=== PATIENT | male | born 2000 | race Caucasian/White ===

== ENCOUNTER → 2020-02-27 12:48 | Outpatient (CLI) | payer BC, SELFPAY ==
--- NOTE | ~2020-02-27 | XR_ITS ---
EXAMINATION: XR chest 2V DATE: 02/27/2020 13:01 INDICATION: Pneumonia, unspecified organism. TECHNIQUE: Frontal and lateral views of the chest were obtained on 3 radiographs. COMPARISON: Chest 2 views 12/05/2004 FINDINGS: The chest demonstrates clear lungs without pneumonia, pleural effusion, or pneumothorax. Th e heart size is normal. IMPRESSION: 1. No acute cardiopulmonary disease. Reviewed, dictated and finalized at location A.
== END ==
PROVIDERS: PCP Physician Assistant; Visit Provider Physician Assistant
DX: J18.9 Pneumonia, unspecified organism (principal)
CPT/HCPCS: 71046

== ENCOUNTER 2020-11-13 07:07 | Outpatient (NON) | payer BC, SELFPAY ==
[2020-11-14 01:23] LABS: SARS-CoV-2 RNA PCR Negative
== END 2020-11-13 07:08 ==
LOC: ANHCOVIDDT 07:07
PROVIDERS: PCP Physician Assistant; Visit Provider Family Medicine
DX: R68.89 Other general symptoms and signs (principal); Z20.828 Contact with and (suspected) exposure to other viral communicable diseases
CPT/HCPCS: 87635; C9803; U0003

== ENCOUNTER 2021-08-01 04:57 | Observation (INO) | payer BC, SELFPAY ==
[2021-08-01] VITALS (19 sets, daily range): BP systolic 115–140; BP diastolic 56–76; PULSE 45–100; RESP 16–26; TEMP 32.2–36.7; O2SAT 99–100; BMI 22.6
--- NOTE | ~2021-08-01 | XR_ITS ---
EXAMINATION: XR chest 1V portable DATE: 08/01/2021 06:34 INDICATION: Altered mental status, sweating, weakness and hypothermia. TECHNIQUE: frontal view of the chest was obtained. COMPARISON: Chest radiograph dated 02/27/2020 FINDINGS: The lungs remain clear with no focal airspace opacities, pulmonary edema, pleural effusion or pneumot horax. Centimeters noted small azygos lobe and fissure at the medial right apex. The cardiomediastina l silhouette is normal. Visualized bones and soft tissues are unremarkable. IMPRESSION: 1. No acute cardiopulmonary disease. Reviewed, dictated and finalized at location A.
--- NOTE | 2021-08-01 05:25 | ED.GENADULT ---
HPI - General Adult General Chief complaint: Unspecified <Gatito Huang DO - Last Filed: 08/01/21 19:39> Stated complaint: Excessive sweating, muscles not working. <Gatito Huang DO - Last Filed: 08/01/21 19:39> Time Seen by Provider: 08/01/21 05:08 <Gatito Huang DO - Last Filed: 08/01/21 19:39> Source: RN notes reviewed <Gatito Huang DO - Last Filed: 08/01/21 19:39> History of Present Illness HPI narrative: Patient presents to emergency department from home for sweating and muscle fatigue. Patient states that he woke up from sleep at approximately 2 AM and went to the bathroom and had no difficulties he states that he went back to sleep and then woke up at 230 drenched in sweat he states that with this his muscles are not working . He states he feels shaky and achy all over he denies any fevers. He states that he did have nausea earlier but no nausea now he denies a headache, chest pain shortness of breath abdominal pain vomiting diarrhea or any other symptoms he states he felt fine all day yesterday <Gatito Huang DO - Last Filed: 08/01/21 19:39> Related Data Home medications: Home Medications Medication Instructions Recorded Confirmed topiramate 25 mg tablet 25 mg PO DAILY 01/16/20 08/01/21 <Gatito Huang DO - Last Filed: 08/01/21 19:39> Allergies/adverse reactions: Allergies Allergy/AdvReac Type Severity Reaction Status Date / Time promethazine Allergy Unknown hallucinati Verified 08/01/21 11:11 ons <Gatito Huang DO - Last Filed: 08/01/21 19:39> Review of Systems Review of Systems: Gen.: Denies fevers or chills or sweating ENT: Denies congestion Respiratory: Denies shortness of breath or cough CV: Denies chest pain or palpitations GI: Denies abdominal pain emesis or diarrhea reports nausea earlier denies burning, urgency, frequency or hematuria Musculoskeletal: Reports muscle aches Neuro: Denies numbness, tingling, weakness or focal weakness Skin: Denies rash Except as documented, all other systems reviewed and negative <Gatito Huang DO - Last Filed: 08/01/21 19:39> [facility] Past Medical History Medical History: Medical History (Updated 08/01/21 @ 14:15 by Saturnino Jacobs MD) Migraine Raynaud's disease <Gatito Huang DO - Last Filed: 08/01/21 19:39> Family History Family History: Family History Mother Family history of migraine headaches <Gatito Huang DO - Last Filed: 08/01/21 19:39> Social History Social History: Social History (Updated 08/01/21 @ 14:13 by Saturnino Jacobs MD) Social History: He lives at home with his mother and brother. 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 Denies tobacco use. She drinks 2 alcoholic drinks per week on average. He smokes a gram of marijuana per week. No history of IV drug use. Full code. Smoking status: Never smoker Alcohol intake: never Substance use: current Substance use type: marijuana Last use: 07/23/21 Spiritual care concerns: No <Gatito Huang DO - Last Filed: 08/01/21 19:39> Exam Narrative: APPEARANCE: Shivering in bed answering all questions EYES: EOMI, PERRL HEENT: Normocephalic, atraumatic, OMM RESPIRATORY: No respiratory distress Clear to auscultation bilaterally with no rhonchi wheezing or rales. CARDIOVASCULAR: Regular rate and rhythm without murmurs rubs or gallops. ABDOMINAL: Soft, nontender, nondistended, no rebound or guarding MUSCULOSKELETAl: Moves all extremities. No clubbing, distal cyanosis in several of the bilateral toes consistent with Raynaud's bilateral dorsalis pedis pulse 2+ neurovascular intact NEURO: Awake and alert x 4. Following commands, speech normal, no focal deficits SKIN:: Warm, dry. No rashes lesions or abrasions PSYCHIATRIC: Normal affect/mood, <Gatito Huang DO - Last Filed: 08/01/21 19:3
--- NOTE | 2021-08-01 05:40 | ECG_ITS ---
Measurements Intervals [place] Rate: 40 P: 77 [place]: 185 QRS: 81 QRSD: 134 T: 70 QT: 553 QTc: 451 Interpretive Statements SINUS BRADYCARDIA INTRAVENTRICULAR CONDUCTION DELAY ST ELEVATION IN ANTEROLAT/INF LEADS- PROBABLY EARLY REPOLARIZATION ABNORMALITY BASELINE ARTIFACT- I, II, III, AVR, AVL, V2, V4 ABNORMAL ECG Electronically Signed On 08-01-2021 7:24:09 CDT by Osvaldo Jimenez D.O.
[2021-08-01 05:49] LABS: Basophils Percent Auto 0.3 % (0.2-1.2); Eosinophils Percent Auto 0.2 % (0-4.4); Hematocrit 49.8 % (42.0-52.0); Hemoglobin 16.4 g/dL (14.0-18.0); Immature Granulocyte Percent A 1.4 % (0-0.5); Lymphocytes Absolute Auto 1.86 K/mm3 (0.9-3.2); Lymphocytes Percent Auto 12.8 % (18.3-44.2); Mean Corpuscular HGB Conc 32.9 g/dl (32-36); Mean Corpuscular Hemoglobin 32.1 pg (26-34); Mean Corpuscular Volume 97.5 fl (80-100); Monocytes Absolute Auto 0.7 K/mm3 (0.1-0.6); Monocytes Percent Auto 4.6 % (2.6-8.5); Neutrophils Absolute Auto 11.7 K/mm3 (1.3-6.7); Neutrophils Percent Auto 80.7 % (45.5-73.1); Platelet Count Result 191 k/mm3 (150-375); Red Blood Count 5.11 M/mm3 (4.6-6.20); Red Cell Distribution Width 12.5 % (11.5-14.5); White Blood Count 14.5 K/mm3 (4.5-10.0)
[2021-08-01 05:58] LABS: Lipase 24 U/L (23-300)
[2021-08-01] MEDS: SODIUM CHLORIDE 0.9% IV 1,000 ML 999 ML IV CONT (06:06)
--- NOTE | 2021-08-01 06:27 | PC.NURSE ---
late entry @0159 jessica calderon
[2021-08-01 06:53] LABS: Glucose Point of Care 100 mg/dl (65-105)
[2021-08-01 07:59] LABS: Ethanol < 10 mg/dL (<10); Lactic Acid Reflex 1.1 mmol/L (0.7-2.1)
--- NOTE | 2021-08-01 08:05 | PC.NURSE ---
Assumed care. Awake and alert. Color pink. Offers no c/o.
[2021-08-01 08:26] LABS: Alanine Aminotransferase 24 U/L (4-50); Albumin Level 4.5 g/dL (3.5-5.1); Alkaline Phosphatase 87 U/L (38-126); Anion Gap 9 mmol/L (8-16); Aspartate Amino Transferase 52 U/L (17-59); Bilirubin,Total 0.6 mg/dL (0.2-1.3); Blood Urea Nitrogen 20 mg/dL (9-20); Carbon Dioxide 24 mmol/L (22-30); Chloride 103 mmol/L (98-107); Creatine Kinase 516 U/L (55-170); Estimated CRCL calculation 127 ml/min; Estimated Glomerular Filt Rate > 60; Glucose 84 mg/dL (65-110); Magnesium 1.8 mg/dL (1.6-2.3); Potassium 4.2 mmol/L (3.4-5.0); Sodium 136 mmol/L (137-145)
[2021-08-01 08:29] LABS: Add Urine Microscopic? YES; Appearance Urine Clear (Clear); Bilirubin Urine Negative (Negative); Blood Urine Negative (Negative); Color Urine Yellow (Yellow); Glucose Urine UA Negative (Negative); Ketones Urine 2+ mg/dL (Negative); Leukocyte Esterase Ur Negative LEU/UL (Negative); Mucus Urine Rare /lpf; Nitrate Urine Negative (Negative); Protein Urine Negative (Negative); RBC Urine 0-2 /hpf (0-2); Specific Grav Ur 1.023 (1.001-1.035); Urobilinogen Urine Negative mg/dL (<2.0)
[2021-08-01 08:37] LABS: Amphetamine Screen Urine Negative (Negative); Barbiturate Screen Urine Negative (Negative); Benzodiazepines Screen Urine Negative (Negative); Cannabinoid Screen Urine Positive (Negative); Cocaine Screen Urine Negative (Negative); Methadone Screen Urine Negative (Negative); Opiate Screen Urine Negative (Negative); Phencyclidine Screen Urine Negative (Negative)
--- NOTE | 2021-08-01 11:15 | ADMGEN ---
This patient, Gino Rossi, was admitted to Medical Room 240-01. Patient/family oriented to hospital policies and general routines including ID bracelet, bed and alarms, visiting hours, pain management, procedures, bathroom and other care routines, personal items, smoking policy, room service/diet, and visiting hours. Information on how to activate the Rapid Response Team has been discussed. Patient/Family are encouraged to report perceived risks to care and to ask questions if they do not understand what they are told or what they should do.
[2021-08-01] MEDS: SODIUM CHLORIDE 0.9% IV 1,000 ML 125 ML IV CONT ×2 (12:37→19:36)
--- NOTE | 2021-08-01 13:58 | PM.IMHP ---
H&P: HPI History of Present Illness Date/Time: PATIENT HAS BEEN ADMITTED UNDER OBSERVATION STATUS 08/01/21 13:58 Chief Complaint: weakness Narrative: 20yo male with migraines here for weakness. Patient states he drank 4 alcoholic drinks yesterday. He denies using marijuana or other drug use. He fell asleep around 8:30 p.m. last evening. He fell asleep with his wet swim trunks on. He awoke around 230 a.m. this morning and was able to walk to the bathroom. He states there was no symptoms at that time. He returned to bed but could not sleep. Patient did not have a fan. He developed diaphoresis with nausea. He had trouble getting out of bed and felt very weak walking to the bathroom. He was having chills but no fevers. No cough or shortness of breath but did feel slightly dyspneic on walking up stairs. No chest pain or palpitations. No dysuria or hematuria. No diarrhea. No skin rashes. No headaches, sore throat or eye symptoms. No complaints of anosmia or dysgeusia. No COVID exposures. No exposure to STDs. He was vaccinated last spring. In the bathroom he laid down on the ground had difficulty even getting up. He states that his friend had to carry him to his car and he was brought to the emergency room for evaluation. In the emergency room, patient's temperature was 90? and heart rate was 45. EKG reviewed showing sinus bradycardia heart rate [address]-elevation probbaly repolarization. Again patient denies any chest pain. Alcohol level was negative. Urine drug screen is positive for cannabis. UA showed 2+ ketones. Comprehensive metabolic panel was normal. Total CK was 516. White count is elevated 14,000. Chest x-ray was clear. Patient was treated with a Jillian Hugger. Temperature improved. This was started on IV fluids after fluid bolus given. Heart rate has normalized. Patient feels well now. He was admitted for further care. Review of Systems Review of Systems: All systems reviewed & are unremarkable except as noted in HPI and below PMFSH Past Medical History Medical History (Updated 08/01/21 @ 14:15 by Saturnino Jacobs MD) Migraine Raynaud's disease Family History Family History Mother Family history of migraine headaches Social History Social History (Updated 08/01/21 @ 14:13 by Saturnino Jacobs MD) Social History: He lives at home with his mother and brother. 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 Denies tobacco use. She drinks 2 alcoholic drinks per week on average. He smokes a gram of marijuana per week. No history of IV drug use. Full code. Smoking status: Never smoker Alcohol intake: never Substance use: current Substance use type: marijuana Last use: 07/23/21 Spiritual care concerns: No Meds Home Medications and Allergies Home Medications Medication Instructions Recorded Confirmed Type topiramate 25 mg tablet 25 mg PO DAILY 01/16/20 08/01/21 History rizatriptan 10 mg tablet See Rx Instructions PO .COMPLEX 12/14/20 08/01/21 Rx #10 tablet Allergies Allergy/AdvReac Type Severity Reaction Status Date / Time promethazine Allergy Unknown hallucinati Verified 08/01/21 11:11 ons Vital Signs Vital Signs - 24 hr 08/01/21 05:30 08/01/21 05:45 08/01/21 06:18 Temperature 90 F L 91 F L Pulse Rate 45 L 100 79 Respiratory Rate 20 18 18 Blood Pressure 120/56 L 117/62 115/60 Pulse Oximetry 100 100 08/01/21 06:55 08/01/21 07:49 08/01/21 08:00 Temperature 93.5 F L Pulse Rate 66 73 66 Respiratory Rate 18 26 H 16 Blood Pressure 120/75 Pulse Oximetry 100 100 08/01/21 08:01 08/01/21 08:16 08/01/21 09:45 Temperature 96.5 F L 97.9 F Pulse Rate 55 L 68 Respiratory Rate 16 16 Blood Pressure 130/75 131/71 Pulse Oximetry 99 08/01/21 10:39 08/01/21 11:09 08/01/21 12:00 Temperature 97.8 F Pulse Rate 64 71 69 Respiratory Ra
[2021-08-01 16:21] LABS: Monoscreen Negative (Negative); Negative Monotest Control Negative (Negative); Positive Monotest Control Positive (Positive)
[2021-08-01] MEDS: MELATONIN 3 MG TABLET PO (21:51)
[2021-08-02] VITALS: PULSE 57
--- NOTE | 2021-08-02 | ECHO_ITS ---
Patient Info Name: Gino Rossi Age: 20 years : 2000 Gender: Male Ht: 74 in Wt: 176 lbs BSA: 2.04 m2 HR: 58 bpm BP: 131 / 67 mmHg Exam Date: 08/02/2021 11:37 AM Exam Location: [facility] Patient Status: Outpatient Admit Date: 08/01/2021 Staff Ordering Physician: Saturnino Jacobs MD Station Helper: Luiz Epstein RDCS, RT Attending Provider: Saturnino Jacobs MD Exam Type: CA echo doppler color flow Study Info Indications R00.1 - Bradycardia, unspecified Complete two-dimensional, color flow and Doppler transthoracic echocardiogram is performed. Strain analysis performed. Summary 1. Complete two-dimensional, color flow and Doppler transthoracic echocardiogram is performed. 2. Left ventricular chamber dimension is mildly enlarged. 3. Left ventricular systolic function is normal, estimated at 55-60%. 4. The left ventricular diastolic function is normal. 5. E/e' 4 is not elevated. 6. Global longitudinal strain is normal at -20.5%. Left Ventricle E/e' 4 is not elevated. Global longitudinal strain is normal at -20.5%. Left ventricular chamber dimension is mildly enlarged. Left ventricular systolic function is normal, estimated at 55-60%. The left ventricular diastolic function is normal. Right Ventricle Right ventricular systolic function is normal and with normal TAPSE 2.4 cm. Right ventricular chamber dimension is normal. Left Atria Left atrial chamber dimension is normal. Right Atria Right atrial chamber dimension is normal. Aortic Valve The aortic valve is trileaflet. There is no aortic valve stenosis. There is no aortic valve regurgitation. Pulmonic Valve There is no pulmonic regurgitation. Mitral Valve There is no mitral valve stenosis. There is no mitral valve regurgitation. Tricuspid Valve There is no tricuspid valve regurgitation. Pericardium/Pleural There is no pericardial effusion. Inferior Vena Cava Normal inferior vena cava with >50% collapse upon inspiration consistent with normal right atrial pressure, 5 mmHg. Aorta The aortic root size at the sinus of Valsalva is normal. Left Ventricular Outflow Tract Name Value Normal LVOT 2D LVOT Diameter 2.2 cm LVOT Doppler LVOT Peak Gradient 4 mmHg LVOT Mean Gradient 2 mmHg LVOT VTI 22 cm LVOT VTI/AV VTI Ratio 0.9 LVOT Stroke Volume 84 ml LVOT CO 4.7 l/min LVOT CI 2.3 l/min/m2 Mitral Valve Name Value Normal MV Doppler MV Decel [place] 290 cm/s2 MV PHT 67 ms MV Area (PHT) 3.3 cm2 MV Diastolic Function
[2021-08-02 04:00] VITALS: BP 122/73; PULSE 55; PULSE 64; RESP 16; TEMP 36.4; O2SAT 99
[2021-08-02 05:18] LABS: Basophils Percent Auto 0.3 % (0.2-1.2); Eosinophils Percent Auto 0.5 % (0-4.4); Hematocrit 43.3 % (42.0-52.0); Hemoglobin 14.7 g/dL (14.0-18.0); Immature Granulocyte Absolute 0.01 K/mm3 (0.00-0.031); Immature Granulocyte Percent A 0.2 % (0-0.5); Lymphocytes Absolute Auto 1.64 K/mm3 (0.9-3.2); Lymphocytes Percent Auto 25.9 % (18.3-44.2); Mean Corpuscular HGB Conc 33.9 g/dl (32-36); Mean Corpuscular Hemoglobin 32.5 pg (26-34); Mean Corpuscular Volume 95.6 fl (80-100); Mean Platelet Volume 10.9 fl (7.4-10.4); Monocytes Absolute Auto 0.7 K/mm3 (0.1-0.6); Monocytes Percent Auto 10.3 % (2.6-8.5); Neutrophils Percent Auto 62.8 % (45.5-73.1); Platelet Count Result 176 k/mm3 (150-375); Red Blood Count 4.53 M/mm3 (4.6-6.20); Red Cell Distribution Width 12.8 % (11.5-14.5); White Blood Count 6.3 K/mm3 (4.5-10.0)
[2021-08-02 05:40] LABS: Alanine Aminotransferase 19 U/L (4-50); Albumin Level 3.7 g/dL (3.5-5.1); Alkaline Phosphatase 64 U/L (38-126); Anion Gap 7 mmol/L (8-16); Aspartate Amino Transferase 34 U/L (17-59); Bilirubin,Total 0.7 mg/dL (0.2-1.3); Blood Urea Nitrogen 12 mg/dL (9-20); Calcium 8.9 mg/dL (8.4-10.2); Carbon Dioxide 21 mmol/L (22-30); Chloride 107 mmol/L (98-107); Creatine Kinase 242 U/L (55-170); Estimated CRCL calculation 130 ml/min; Estimated Glomerular Filt Rate > 60; Glucose 95 mg/dL (65-110); Potassium 3.6 mmol/L (3.4-5.0); Sodium 135 mmol/L (137-145)
[2021-08-02] MEDS: SODIUM CHLORIDE 0.9% IV 1,000 ML 125 ML IV CONT ×2 (05:52→13:46)
--- NOTE | 2021-08-02 07:00 | ECG_ITS ---
Measurements Intervals [place] Rate: 49 P: 75 [place]: 157 QRS: 74 QRSD: 112 T: 56 QT: 433 QTc: 394 Interpretive Statements SINUS BRADYCARDIA INCOMPLETE RIGHT BUNDLE BRANCH BLOCK ABNORMAL ECG Electronically Signed On 08-02-2021 9:07:13 CDT by Osvaldo Jimenez D.O.
[2021-08-02 08:00] VITALS: PULSE 53
[2021-08-02 10:00] VITALS: BP 138/82; PULSE 66; RESP 20; TEMP 36.6; O2SAT 100
[2021-08-02 12:30] VITALS: PULSE 78
--- NOTE | 2021-08-02 14:03 | PM.DS ---
DS: Admitting Diagnosis Discharge Date 08/02/21 Admitting Diagnosis weakness DS: Discharge Diagnosis Discharge Diagnosis (1) Hypothermia: Qualifiers: Encounter type: initial encounter Qualified Code(s): T68.XXXA - Hypothermia, initial encounter Code(s): T68.XXXA - Hypothermia, initial encounter Status: Acute Assessment and Plan: Patient with significant hypothermia on presentation. Although patient was sleeping with his wet bathing suit, he was under a comforter in a bed making exposure less likely. White count was elevated so we considered sepsis although symptoms had acute onset and have resolved just as quickly. Temperature responded to the Jillian Hugger. This was weaned off and he was able to maintain his temperature. BCx NGTD. (2) Bradycardia: Code(s): R00.1 - Bradycardia, unspecified Status: Acute Assessment and Plan: Patient with bradycardia most likely related to the hypothermia. EKG showing sinus bradycardia with IVCD and ST elevation in anterolateral leads probably early repolarization. No recent medication use for his migraines. No illicit drug use recently. He says he has not smoked marijuana for a few days now. He denies taking excessive medications in an attempted overdose; denies suicidal ideation. Bradycardia appears to have resolved with resolution of the hypothermia and thus most likely connected. No complaints of chest pain which makes pericarditis less likely. He was monitored on telemetry and he was bradycardic at times when sleeping but normal HR response when up walking. TSH normal. Repeat EKG showing sinus alice (49) with incomplete right bundle branch block. Echo was normal. (3) Rhabdomyolysis: Qualifiers: Rhabdomyolysis type: non-traumatic Qualified Code(s): M62.82 - Rhabdomyolysis Code(s): M62.82 - Rhabdomyolysis Status: Acute Assessment and Plan: Patient with mild rhabdomyolysis possibly related to the shaking chills from hypothermia. Also consider if patient was sleeping on a hard surface although he denies this. Viral etiology is possible though seems less likely. Monospot negative. He was treated with IV fluids. Repeat total CK close to normal. (4) Marijuana use: Code(s): F12.90 - Cannabis use, unspecified, uncomplicated Status: Acute Assessment and Plan: Encouraged patient to stop smoking marijuana especially if he wants to have a career in law enforcement. He voiced understanding of this. DS: Summary Hospital Course Reason for hospitalization: 20yo male with migraines here for weakness. Please see H&P for details Hospital Course: Please see above for details of hospital course. Status at Discharge Cognitive/behavioral status at discharge: Stable Time Spent with Patient Time attestation: Total time spent providing and/or coordinating discharge services: 32 minutes Time spent: Greater than 30 minutes Specific discharge activities: attempted to call mother twice but no response (with patient permission) Exam Narrative: Af 97.9 138/82 78 20 100% ra Gen - NARD Chest - CTA bilaterally, nml RR CV - bradycardic, regular Abd - soft, NT/ND, +BS Ext - no pedal edema Neuro - nonfocal Psych - normal mood and affect. Patient is pleasant and cooperative. Skin - warm and dry. No rashes noted. DS: Data Data Completed and Pending Labs on day of discharge: Labs from last 24 hours 08/02/21 08/02/21 08/02/21 04:44 04:44 04:44 WBC 6.3 RBC 4.53 L Hgb 14.7 Hct 43.3 MCV 95.6 MCH 32.5 MCHC 33.9 RDW 12.8 Plt Count 176 MPV 10.9 H Immature Gran % (Auto) 0.2 Neut % (Auto) 62.8 Lymph % (Auto) 25.9 Churchill % (Auto) 10.3 H Eos % (Auto) 0.5 Baso % (Auto) 0.3 Lymph # (Auto) 1.64 Churchill # (Auto) 0.7 H Eos # (Auto) 0.0 Baso # (Auto) 0.0 Abs Immat Gran (auto) 0.01 Absolute Neuts (auto) 4.0 Absolute Nuc
== END 2021-08-02 15:01 | disposition home or self-care (01) ==
LOC: ANHED 05:09 → ANH2MED 10:15
PROVIDERS: Admitting Provider Internal Medicine; Emergency Provider Emergency Medicine; PCP Physician Assistant; Visit Provider Internal Medicine
DX: T68.XXXA Hypothermia, initial encounter (principal); R00.1 Bradycardia, unspecified; M62.82 Rhabdomyolysis; R53.1 Weakness; I45.10 Unspecified right bundle-branch block; I73.00 Raynaud's syndrome without gangrene; F12.90 Cannabis use, unspecified, uncomplicated; Z79.899 Other long term (current) drug therapy
CPT/HCPCS: 36415; 71045; 80053; 80307; 81001; 82550; 82948; 83605; 83690; 83735; 84443; 85025; 86308; 87040; 93005; 93306; 96360; 96361; 99285; A9270; G0378; J7030

== ENCOUNTER 2021-10-21 11:21 | Outpatient (CLI) | payer BC, SELFPAY ==
[2021-10-21 11:34] LABS: Basophils Percent Auto 0.2 % (0.2-1.2); Hematocrit 43.6 % (42.0-52.0); Hemoglobin 14.7 g/dL (14.0-18.0); Immature Granulocyte Absolute 0.04 K/mm3 (0.00-0.031); Immature Granulocyte Percent A 0.4 % (0-0.5); Lymphocytes Absolute Auto 0.64 K/mm3 (0.9-3.2); Lymphocytes Percent Auto 7.1 % (18.3-44.2); Mean Corpuscular HGB Conc 33.7 g/dl (32-36); Mean Corpuscular Hemoglobin 32.7 pg (26-34); Mean Corpuscular Volume 97.1 fl (80-100); Mean Platelet Volume 10.6 fl (7.4-10.4); Monocytes Absolute Auto 0.6 K/mm3 (0.1-0.6); Monocytes Percent Auto 6.2 % (2.6-8.5); Neutrophils Absolute Auto 7.8 K/mm3 (1.3-6.7); Neutrophils Percent Auto 86.1 % (45.5-73.1); Platelet Count Result 170 k/mm3 (150-375); Red Blood Count 4.49 M/mm3 (4.6-6.20); Red Cell Distribution Width 13.5 % (11.5-14.5)
== END 2021-10-21 11:22 | disposition home or self-care (01) ==
LOC: ANHLAB 11:23
PROVIDERS: PCP Family Medicine; Visit Provider Physician Assistant
DX: D72.829 Elevated white blood cell count, unspecified (principal)
CPT/HCPCS: 36415; 85025

== ENCOUNTER 2024-07-06 08:39 | Emergency (ER) | payer OTHER, SELFPAY ==
--- NOTE | ~2024-07-06 | XR_ITS ---
EXAMINATION: XR ankle RT min 3V DATE: 07/06/2024 09:17 INDICATION: Right ankle pain. TECHNIQUE: 4 views of right ankle were obtained. COMPARISON: None. FINDINGS: Bone alignment is normal. No fracture. Joint spaces are normal. IMPRESSION: 1. No fracture. Reviewed, dictated and finalized at location E. IMPRESSION: 1. No fracture.
--- NOTE | ~2024-07-06 | XR_ITS ---
EXAMINATION: XR finger 1st LT min 2V DATE: 07/06/2024 09:17 INDICATION: Left thumb pain and swelling. TECHNIQUE: 3 views of left thumb were obtained. COMPARISON: None. FINDINGS: Bone alignment is normal. No fracture. Joint spaces are normal. IMPRESSION: 1. No fracture. Reviewed, dictated and finalized at location E. IMPRESSION: 1. No fracture.
--- NOTE | 2024-07-06 08:43 | ED.GENADULT ---
HPI - General Adult General Chief complaint: Extremity Injury, Upper Stated complaint: R FOOT/L HAND PAIN Time Seen by Provider: 07/06/24 08:55 Source: patient, RN notes reviewed and old records reviewed Mode of arrival: ambulatory Limitations: no limitations History of Present Illness HPI narrative: 23-year-old male presents to the [facility] with complaints of right foot and left hand pain. Denies any injury. Patient reports playing pickleball on Sunday. Started with right anterior ankle pain night, left thumb pain started Sunday night. No treatment prior to arrival Related Data Allergies Allergy/AdvReac Type Severity Reaction Status Date / Time promethazine Allergy Unknown hallucinati Verified 07/06/24 08:51 ons Review of Systems Review of Systems: All systems reviewed & are unremarkable except as noted in HPI and below Constitutional: Constitutional: Reports no additional constitutional complaints Eyes: Eyes: Reports no additional eye complaints ENT: Reports system reviewed and no additional complaints, except as documented Cardiovascular: Cardiovascular: Reports no additional cardiovascular complaints, Denies chest pain and Denies dyspnea Respiratory: Respiratory: Reports no additional respiratory complaints, Denies chest congestion, Denies cough and Denies dyspnea Gastrointestinal: Gastrointestinal: Reports no additional gastrointestinal complaints, Denies abdominal pain, Denies nausea and Denies vomiting Musculoskeletal: Musculoskeletal: Reports as per HPI Integumentary/Breasts: Skin/Breast: Reports system reviewed and no additional complaints, except as docu Neurologic: Reports system reviewed and no additional complaints, except as documented Psychiatric: Psychiatric: Reports no additional psychiatric complaints Allergic/Immunologic: Allergic/Immunologic: Reports no additional allergic/immunologic complaints PMFSH Past Medical History Medical History Migraine Raynaud's disease Surgical History Surgical History Status post orchiopexy (~10/19/21) bilateral Family History Family History Mother Family history of migraine headaches Social History Social History Social History: caffeine 2 soda's daily Smoking status: Never smoker Tobacco type: e-cigarettes/vaping Alcohol intake: current Drinks per week: 6 Alcohol use details: Beer Do You Feel Safe in your Home?: Yes Lack of Transportation: No Lack of Food: Never True Current Housing: I Have Housing Concerned About Future Housing: No Difficulty Paying Gas/Electric Bills: No Difficulty Paying for Meds: No Currently Unemployed: No Education: Bachelor's Degree Difficulty w/ Childcare or Family Care: No Living arrangements: with family Occupation/Education: occupation 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 There is no relevant family history pertinent to the patient complaint. Exam Const: General: cooperative, healthy appearing, comfortable, no acute distress, well developed, alert and well nourished Nutritional Appearance: well nourished Orientation/consciousness: patient oriented x3 Limitations: no limitations HENMT: Head: normal to inspection Ears: hearing grossly normal bilaterally and external ears normal Face/Nose/Sinus: Normal external nose present, Normal nares present, Normal nasal mucous membranes and turbinates present, williams
[2024-07-06 08:52] VITALS: BP 108/94; PULSE 87; RESP 16; TEMP 36.5; O2SAT 98
== END 2024-07-06 09:49 | disposition home or self-care (01) ==
PROVIDERS: Emergency Provider Nurse Practitioner; PCP Family Medicine
DX: M79.645 Pain in left finger(s) (principal); M25.572 Pain in left ankle and joints of left foot; M25.472 Effusion, left ankle; F17.290 Nicotine dependence, other tobacco product, uncomplicated; I73.00 Raynaud's syndrome without gangrene
CPT/HCPCS: 73140; 73610; 99214; G0463

== ENCOUNTER 2024-07-07 15:30 | Emergency (ER) | payer OTHER, SELFPAY ==
[2024-07-07 16:12] VITALS: BP 135/94; PULSE 107; RESP 18; TEMP 36.6; O2SAT 99
--- NOTE | 2024-07-07 17:55 | ED.LOWEXIN ---
HPI - Extremity Injury (Lower) General Chief Complaint: Extremity Injury, Lower Stated Complaint: Right ankle and foot pain Time Seen by Provider: 07/07/24 17:15 Source: patient Mode of arrival: ambulatory (Using crutches) Limitations: no limitations History of Present Illness HPI Narrative: This is a 23-year-old male that presents to the emergency department for right ankle pain and swelling. Ongoing over the last 3 days. He was evaluated at urgent care for this. Had x-rays that were negative. Presents today for associated redness of the area. He has been alternating Tylenol and ibuprofen for pain. No known injuries. Denies fevers. Related Data Allergies Allergy/AdvReac Type Severity Reaction Status Date / Time promethazine Allergy Unknown hallucinati Verified 07/06/24 08:51 ons Review of Systems Review of Systems: CONSTITUTIONAL: Denies fever MUSCULOSKELETAL: Reports joint pain, and myalgia. NEUROLOGIC: Denies numbness All systems reviewed & are unremarkable except as noted in HPI and below PMFSH Past Medical History Medical History Migraine Raynaud's disease Surgical History Surgical History Status post orchiopexy (~10/19/21) bilateral Family History Family History Mother Family history of migraine headaches Social History Social History Social History: caffeine 2 soda's daily Smoking status: Never smoker Tobacco type: e-cigarettes/vaping Alcohol intake: current Drinks per week: 6 Alcohol use details: Beer Do You Feel Safe in your Home?: Yes Lack of Transportation: No Lack of Food: Never True Current Housing: I Have Housing Concerned About Future Housing: No Difficulty Paying Gas/Electric Bills: No Difficulty Paying for Meds: No Currently Unemployed: No Education: Bachelor's Degree Difficulty w/ Childcare or Family Care: No Living arrangements: with family Occupation/Education: occupation Additional occupation/education comments: [employer] Gender identity (if verbalized by the patient): Male Sexual Orientation (if Verbalized by the Patient): Straight or Heterosexual Spiritual care concerns: No Agree to blood products: Yes Exam Narrative: GENERAL: Well-appearing, well-nourished, and in no acute distress. HEAD: Normocephalic, atraumatic. EYES: EOMI. EXTREMITIES: Normal range of motion. Mild edema with overlying redness to the right foot dorsal surface anterior to the ankle. Normal DP pulse. Normal sensation SKIN: Warm, dry, no rash. NEURO: No focal deficits. Alert and oriented x3. PSYCH: Normal mood and affect Course Course Emergency Course: Patient updated on workup and agrees with plan of care Vital Signs Vital signs: Vital Signs Temperature 97.8 F 07/07/24 16:12 Pulse Rate 107 H 07/07/24 16:12 Respiratory Rate 18 07/07/24 16:12 Blood Pressure 135/94 H 07/07/24 16:12 Pulse Oximetry 99 07/07/24 16:12 Oxygen Delivery Room Air 07/07/24 16:12 Temperature 97.8 F 07/07/24 16:12 Pulse Rate 107 H 07/07/24 16:12 Respiratory Rate 18 07/07/24 16:12 Blood Pressure 135/94 H 07/07/24 16:12 Pulse Oximetry 99 07/07/24 16:12 Oxygen Delivery Room Air 07/07/24 16:12 MDM - Extremity Injury (Lower) MDM Narrative Medical decision making narrative: Patient presents to the emergency department for right ankle pain and swelling. Today noting associated redness. Is afebrile and nontoxic appearing. Patient is neurovascularly intact. Good range of motion in the ankle. CBC with mild leukocytosis to 10.4. Metabolic panel without concerning findings. CRP is 8.2. Uric acid is not elevated. Patient had ankle x-ray yesterday that was without acute findings. Concern for cellulitis
[2024-07-07] MEDS: ACETAMINOPHEN 500 MG TABLET 1000 MG PO (18:03)
[2024-07-07] MEDS: INDOMETHACIN 25 MG CAPSULE 50 MG PO (18:09)
[2024-07-07 18:20] LABS: Basophils Percent Auto 0.2 % (0.2-1.2); Eosinophils Percent Auto 0.4 % (0-4.4); Hematocrit 46.8 % (42.0-52.0); Hemoglobin 16.3 g/dL (14.0-18.0); Immature Granulocyte Absolute 0.04 K/mm3 (0.00-0.031); Immature Granulocyte Percent A 0.4 % (0-0.5); Lymphocytes Absolute Auto 1.38 K/mm3 (0.9-3.2); Lymphocytes Percent Auto 13.3 % (18.3-44.2); Mean Corpuscular HGB Conc 34.8 g/dl (32-36); Mean Corpuscular Volume 94.7 fl (80-100); Mean Platelet Volume 10.8 fl (7.4-10.4); Monocytes Absolute Auto 1.2 K/mm3 (0.1-0.6); Monocytes Percent Auto 11.5 % (2.6-8.5); Neutrophils Absolute Auto 7.7 K/mm3 (1.3-6.7); Neutrophils Percent Auto 74.2 % (45.5-73.1); Platelet Count Result 228 k/mm3 (150-375); Red Blood Count 4.94 M/mm3 (4.6-6.20); Red Cell Distribution Width 12.8 % (11.5-14.5); White Blood Count 10.4 K/mm3 (4.5-10.0)
[2024-07-07 18:35] LABS: Anion Gap 12 mmol/L (4-12); Blood Urea Nitrogen 13 mg/dL (9-20); CRP 8.2 mg/dL (<1.0); Calcium 9.7 mg/dL (8.4-10.2); Carbon Dioxide 29 mmol/L (22-30); Chloride 94 mmol/L (98-107); Estimated CRCL calculation 118 ml/min; Estimated Glomerular Filt Rate > 60; Glucose 103 mg/dL (65-110); Potassium 4.2 mmol/L (3.4-5.0); Sodium 135 mmol/L (137-145); Uric Acid 5.9 mg/dL (3.5-8.5)
[2024-07-07 19:10] LABS: Erythrocyte Sedimentation Rate 15 mm/hr (0-20)
== END 2024-07-07 19:18 | disposition home or self-care (01) ==
PROVIDERS: Emergency Provider Physician Assistant; PCP Family Medicine
DX: M25.571 Pain in right ankle and joints of right foot (principal)
CPT/HCPCS: 36415; 80048; 84550; 85025; 85652; 86140; 99283; A9270

== ENCOUNTER 2025-10-20 09:41 | Outpatient (CLI) | payer OTHER, SELFPAY ==
--- OUTSIDE RECORDS SUMMARY | 2025-07-23 10:00 | XMS_ITS ---
Author Organization [facility] [employer] [facility] Address [facility] [facility] [address] [place] [address] Care Team Providers Care Colliery Clerk Name Role Phone Toby Higgins DO Primary Care Provider Leobardo Hernandez Unavailable [phone] Tino Cook Unavailable [phone] REASON FOR VISIT Therapy Visit Social History Sex Assigned At : Social History Observation Description Sex Assigned At Male Encounters Encounter Location Date Provider Diagnosis [address] [facility] [address] [place] [address] 07/23/2025 Tino Cook Plan Of Treatment No Information Progress Notes * Gino ORTEGA RDOB:2000 (25 yo M)Acc No.[id number]:07/23/2025 Patient: Diana arizaGino Provider: Libia Cook LCPC :2000 A ge:24 Y S ex:Male Date:07/23/2025 Phone: Address:[address] [place], [place] [id number] Pcp:Toby Higgins DO Data: * Chief Complaints: * T herapy Visit * Electronic signature of John Cook LCPC on 10/20/2025 at 10:35 AM WEIGH AND CHARGE WORKER Sign off status: Pending Signatures: No Ad Hoc Signature Added * Provider: Libia Cook LCPC Date: 0 07/23/2025 Generated for Charles freed/Yashira/eTransmitting on: 1 12/20/2024 10:35 AM WEIGH AND CHARGE WORKER
--- OUTSIDE RECORDS SUMMARY | 2025-08-05 09:30 | XMS_ITS ---
Author Organization [facility] Address [facility] [address] [facility] [address] [place] [address] Care Team Providers Care Voip Technician Name Role Phone Toby Higgins DO Primary Care Provider Leobardo Hernandez [phone] REASON FOR VISIT 2 Month f/u Social History Sex Assigned At : Social History Observation Description Sex Assigned At Male Encounters Encounter Location Date Provider Diagnosis [facility] [address] [place] [address] [address] [address] 08/05/2025 Leobardo Alfaro Plan Of Treatment No Information Progress Notes * Gino ORTEGA RDOB:2000 (25 yo M)Acc No.[id number]:08/05/2025 Patient: Diana ariza Gino Smith Provider: Sunny ALFARO MD :2000 A ge:24 Y S ex:Male Date:08/05/2025 Phone: Address:[address] [place], [place] [id number] Pcp:Toby Higgins DO Subjective: * Chief Complaints: * 2 Month f/u * Active Problem List F33.1 Depression, major, r ecurrent, moderate Modified On:12/24/2024/U Status:confirmed F10.10 Alcohol abuse Modified On:12/24/2024/U Status:confirmed F90.2 ADHD (attention defi cit hyperactivity disorder), combined type Modified On:12/24/2024/U Status:confirmed E55.9 Vitamin D deficiency Modified On:01/14/2025/U Status:confirmed F41.1 Generalized anxiety disorder Modified On:01/29/2025/U Status:confirmed Billing Information: * Procedure Codes: * Electronic signature of Jayro Alfaro MD on 10/20/2025 at 10:35 AM ELECTRONIC WARFARE OPERATOR Sign off status: Pending * Provider: Sunny ALFARO MD Date: 0 08/05/2025 Generated for Charles freed/Yashira/Michelle on: 12/20/2024 10:35 AM ELECTRONIC WARFARE OPERATOR
--- OUTSIDE RECORDS SUMMARY | 2025-10-20 10:35 | XMS_ITS | Patient Health Record ---
Author Organization [facility] CANDDi Address [address] [facility] [address] [place] [address] Care Team Providers Care Book Agent Name Role Phone EzekielToby smith DO Primary Care Provider Leobardo Hernandez Unavailable [phone] Tino Cook Unavailable [phone] CookieBrinda mortensen Unavailable [phone] Allergies Allergen (clinical drug ingredient) Drug/Non Drug Allergy documented on EMR Reaction Allergy Type Onset Date Status promethazine Promethazine Unknown Drug Allergy A ctive Results Component Value Reference Range Flag Notes LIPID PANEL, STANDARD (7600) Reviewed date:12/30/2024 07:59:52 PM Interpretation:Abnormal (follow-up needed) Performing Lab:[facility] HospitalBehmx34730 Administration Sarah Richards [id number] [facility] Notes/Report: NON-FASTING; NON-FASTING; NON-FASTING; NON-FASTING; NON-FAST CHOLESTEROL, TOTAL 219 <200 mg/dL H HDL CHOLESTEROL 70 > OR = 40 mg/dL N TRIGLYCERIDES 387 <150 mg/dL H If a non-fasting specimen was collected, consider repeat triglyceride testing on a fasting specimen if clinically indicated. Watson et al. J. of Clin. Lipidol. 2015;9:129-169. LDL-CHOLESTEROL 97 N Reference range: <100 Desirable range <100 mg/dL for primary prevention; <70 mg/dL for patients with CHD or diabetic patients with > or = 2 CHD risk factors. LDL-C is now calculated using the Juventino calculation, which is a validated novel method providing better accuracy than the Friedewald equation in the estimation of LDL-C. Isreal SS et al. CRISTOBAL. 2013;310(19): 1702-7780 (http://education.Think1stBoxing.com/faq /VIH938) CHOL/HDLC RATIO 3.1 <5.0 (calc) N NON HDL CHOLESTEROL 149 <130 mg/dL (calc) H For patients with diabetes plus 1 major ASCVD risk factor, treating to a non-HDL-C goal of <100 mg/dL (LDL-C of <70 mg/dL) is considered a therapeutic option. THYROID PANEL WITH TSH (7444 ) Reviewed date:12/30/2024 07:59:53 PM Interpretation:Normal Performing Lab:[place], [facility]Hnivzd82686 [facility], [id number] Roberth Hardwick MD Notes/Report: NON-FASTING; NON-FASTING; NON-FASTING; NON-FASTING; NON-FAST T3 UPTAKE 31 22-35 % N T4 (THYROXINE), TOTAL 6.2 4.9-10.5 mcg/dL N FREE T4 INDEX (T7) 1.9 1.4-3.8 N TSH 3.16 0.40-4.50 mIU/L N COMPREHENSIVE METABOLIC PANE L (11558) Reviewed date:12/30/2024 07:59:52 PM Interpretation:Normal Performing Lab:[facility] CenterOhhla[address] [place] [id number] Roberth Hardwick Notes/Report: NON-FASTING; NON-FASTING; NON-FASTING; NON-FASTING; NON-FAST GLUCOSE 83 65-99 mg/dL N Fasting reference interval UREA NITROGEN (BUN) 10 7-25 mg/dL N CREATININE 1.03 0.60-1.24 mg/dL N EGFR 104 > OR = 60 mL/min/1.73m2 N BUN/CREATININE RATIO SEE NOTE: 6-22 (calc) Not Reported: BUN and Creatinine are within reference range. SODIUM 138 135-146 mmol/L N POTASSIUM 4.4 3.5-5.3 mmol/L N CHLORIDE 103 98-110 mmol/L N CARBON DIOXIDE 26 20-32 mmol/L N CALCIUM 10.0 8.6-10.3 mg/dL N PROTEIN, TOTAL 7.2 6.1-8.1 g/dL N ALBUMIN 4.8 3.6-5.1 g/dL N GLOBULIN 2.4 1.9-3.7 g/dL (calc) N ALBUMIN/GLOBULIN RATIO 2.0 1.0-2.5 (calc) N BILIRUBIN, TOTAL 0.4 0.2-1.2 mg/dL N ALKALINE PHOSPHATASE 58 36-130 U/L N AST 24 10-40 U/L N ALT 23 9-46 U/L N CBC (INCLUDES DIFF/PLT) (639 9) Reviewed date:12/30/2024 07:59:52 PM Interpretation:Abnormal (no f/u needed) Performing Lab:[place] [facility]star[facility] [place] [address] [address] Sarah Richards CteuydmKP[address] [facility] Notes/Report: NON-FASTING; NON-FASTING; NON-FASTING; NON-FASTING; NON-FAST WHITE BLOOD CELL COUNT 4.8 3.8-10.8 Thousand/uL N RED BLOOD CELL COUNT 4.47 4.20-5.80 Million/uL N HEMOGLOBIN 14.9 13.2-17.1 g/dL N HEMATOCRIT 44.2 38.5-50.0 % N MCV 98.9 80.0-100.0 fL N MCH 33.3 27.0-33.0 pg H MCHC 33.7 32.0-36.0 g/dL N For adults, a slight decrease in the calculated MCHC value (in the range of 30 to 32 g/dL) is most likely not clinically significant; however, it should be interpreted with caution in correlation with other red cell parameters and the patient's clinical condition. RDW 12.5 11.0-15.0 % N PLATELET COUNT 278 140-400 Thousand/uL N MPV 11.3 7.5-12.5 fL N ABSOLUTE NEUTROPHILS 2981 3311-2489 cells/uL N ABSOLUTE LYMPHOCYTES 6432 428-4001 cells/uL N ABSOLUTE MONOCYTES 475 200-950 cells/uL N ABSOLUTE EOSINOPHILS 53 15-500 cells/uL N ABSOLUTE BASOPHILS 29 0-200 cells/uL N NEUTROPHILS 62.1 N LYMPHOCYTES 26.3 N MONOCYTES 9.9 N EOSINOPHILS 1.1 N BASOPHILS 0.6 N HEMOGLOBIN A1c (496) Reviewed date:12/30/2024 07:59:52 PM Interpretation:Normal Performing Lab:[place] [facility] [place] [address] [address] Saarh Richards NolmhnsHF[address] [facility] Notes/Report: NON-FASTING; NON-FASTING; NON-FASTING; NON-FASTING; NON-FAST HEMOGLOBIN A1c 5.1 <5.7 % of total Hgb N For the purpose of screening for the presence of diabetes: <5.7% Consistent with the absence of diabetes 5.7-6.4% Consistent with increased risk for diabetes (prediabetes) > or =6.5% Consistent with diabetes This assay result is consistent with a decreased risk of diabetes. Currently, no consensus exists regarding use of hemoglobin A1c for diagnosis of diabetes in children. According to [place] Diabetes Association (ADA) guidelines, hemoglobin A1c <7.0% represents optimal control in non- diabetic patients. Different metrics may apply to specific patient populations. Standards of Medical Care in Diabetes(ADA). VITAMIN B12/FOLATE, SERUM PA AURELIA (9752) Reviewed date:12/30/2024 07:59:53 PM Interpretation:Abnormal (follow-up needed) Performing Lab:[place] [facility]ia-Qtrqzw41663 [place], [id number] Roberth Hardwick MD Notes/Report: NON-FASTING; NON-FASTING; NON-FASTING; NON-FASTING; NON-FAST VITAMIN B12 556 314-7622 pg/mL N Please Note: Although the reference range for vitamin B12 is 200-1100 pg/mL, it has been reported that between 5 and 10% of patients with values between 200 and 400 pg/mL may experience neuropsychiatric and hematologic abnormalities due to occult B12 deficiency; less than 1% of patients with values above 400 pg/mL will have symptoms. FOLATE, SERUM 4.8 L Reference Range Low: <3.4 Borderline: 3.4-5.4 Normal: >5.4 VITAMIN D,25-OH,TOTAL,IA (17 306) Reviewed date:12/30/2024 07:59:53 PM Interpretation:Abnormal (follow-up needed) Performing Lab:[place] [facility] Denia-Trrutf74734 [place], IyqsfpOQ[address] Roberth Hardwick MD Notes/Report: NON-FASTING; NON-FASTING; NON-FASTING; NON-FASTING; NON-FAST VITAMIN D,25-OH,TOTAL,IA 14 30-100 ng/mL L Vitamin D Status 25-OH Vitamin D: Deficiency: <20 ng/mL Insufficiency: 20 - 29 ng/mL Optimal: > or = 30 ng/mL For 25-OH Vitamin D testing on patients on D2-supplementation and patients for whom quantitation of D2 and D3 fractions is required, the QuestAssureD(TM) 25-OH VIT D, (D2,D3), LC/MS/MS is recommended: order code 45669 (patients >2yrs). See Note 1 Note 1 For additional information, please refer to http://education.Anaplan/faq/ IRD867 (This link is being provided for informational/ educational purposes only.) UDT Reviewed date:12/24/2024 04:18:14 PM Interpretation: Performing Lab: Notes/Report: Amphetamine (AMP) N 0 - 1000 ng/ml Buprenorphine (BUP) N 0 - 10 ng/ml Oxazepam (BZO) N 0 - 300 ng/ml Cocaine (DEVI) N 0 - 300 ng/ml Methamphetamine (mAMP) N 0 - 300 ng/ml Methylenedioxymethamphetamin e (MDMA) N 0 - 500 ng/ml Morphine (MOP) N 0 - 25 ng/ml Methadone (MTD) N 0 - 300 ng/ml Oxycodone (OXY) N 0 - 300 ng/ml THC P 0 - 50 ng/ml x N 0 - 1000 ng/ml x N 0 - 1000 ng/ml x N 0 - 300 ng/ml x N 0 - 300 ng/ml x N 0 - 300 ng/ml UDT Reviewed date:01/07/2025 05:19:35 PM Interpretation: Performing Lab: Notes/Report: Amphetamine (AMP) NEG 0 - 1000 ng/ml Buprenorphine (BUP) NEG 0 - 10 ng/ml Oxazepam (BZO) NEG 0 - 300 ng/ml Cocaine (DEVI) NEG 0 - 300 ng/ml Methamphetamine (mAMP) NEG 0 - 300 ng/ml Methylenedioxymethamphetamin e (MDMA) NEG 0 - 500 ng/ml Morphine (MOP) NEG 0 - 25 ng/ml Methadone (MTD) NEG 0 - 300 ng/ml Oxycodone (OXY) NEG 0 - 300 ng/ml THC POS 0 - 50 ng/ml x NEG 0 - 1000 ng/ml x NEG 0 - 1000 ng/ml x NEG 0 - 300 ng/ml x NEG 0 - 300 ng/ml x NEG 0 - 300 ng/ml DRUG MONITOR, MARIJUANA META B, QN, URINE (49413) Reviewed date:01/06/2025 03:08:32 PM Interpretation: Performing Lab:[place], [facility] [id number] [facility], [place] [id number] Jorge Swartz, Director - [address] [facility] Notes/Report: FASTING: NO Marijuana Metabolite NEGATIVE <5 ng/mL Marijuana Comments See LD T Notes Notes and Comments This drug testing is for medical treatment only. Analysis was performed as non-forensic testing and these results should be used only by healthcare providers to render diagnosis or treatment, or to monitor progress of medical conditions. LDT Notes: Confirmation tests were developed and their analytical performance characteristics have been determined by [facility]. It has not been cleared or approved by the FDA. This assay has been validated pursuant to the CLIA regulations and is used for clinical purposes. Healthcare Providers needing Interpretation assistance, please contact us at [phone] ( ) M-F, 8am to 10pm EST UDT Reviewed date:05/06/2025 03:54:39 PM Interpretation: Performing Lab: Notes/Report: Amphetamine (AMP) NEG 0 - 1000 ng/ml Buprenorphine (BUP) NEG 0 - 10 ng/ml Oxazepam (BZO) NEG 0 - 300 ng/ml Cocaine (DEVI) NEG 0 - 300 ng/ml Methamphetamine (mAMP) NEG 0 - 300 ng/ml Methylenedioxymethamphetamin e (MDMA) NEG 0 - 500 ng/ml Morphine (MOP) NEG 0 - 25 ng/ml Methadone (MTD) NEG 0 - 300 ng/ml Oxycodone (OXY) NEG 0 - 300 ng/ml THC POS 0 - 50 ng/ml x NEG 0 - 1000 ng/ml x NEG 0 - 1000 ng/ml x NEG 0 - 300 ng/ml x NEG 0 - 300 ng/ml x NEG 0 - 300 ng/ml UDT Reviewed date:06/03/2025 02:13:15 PM Interpretation: Performing Lab: Notes/Report: Amphetamine (AMP) N 0 - 1000 ng/ml Buprenorphine (BUP) N 0 - 10 ng/ml Oxazepam (BZO) N 0 - 300 ng/ml Cocaine (DEVI) N 0 - 300 ng/ml Methamphetamine (mAMP) N 0 - 300 ng/ml Methylenedioxymethamphetamin e (MDMA) N 0 - 500 ng/ml Morphine (MOP) N 0 - 25 ng/ml Methadone (MTD) N 0 - 300 ng/ml Oxycodone (OXY) N 0 - 300 ng/ml THC P 0 - 50 ng/ml x N 0 - 1000 ng/ml x N 0 - 1000 ng/ml x N 0 - 300 ng/ml x N 0 - 300 ng/ml x N 0 - 300 ng/ml Reason For Referral No Information Medications Medication SIG (Take, Route, Frequency, Duration) Notes Start Date End Date Status Escitalopram Oxalate 20 MG Tablet 1 tablet Oral Once a day; Duration: 90 days Leobardo Bloom 02/25/2025 04:18:31 PM CDT > Active Vitamin D (Ergocalciferol) 11159 UNIT Capsule 1 capsule once a week Orally see sign; Duration: 90 days Leobardo Bloom 02/25/2025 04:19:27 PM CDT > Active Folic Acid 1 MG Tablet 1 tablet Orally O nce a day; Duration: 90 days Leobardo Bloom 02/25/2025 04:18:59 PM CDT > Active Naltrexone HCl 50 MG Tablet 1 tablet Orally Once a day; Duration: 90 days Leobrado Bloom 02/25/2025 04:18:52 PM CDT > Active Social History Tobacco Use: Social History Observation Description Date Details (start date - stop date) Current Smoker 09/04/2017 - NA Sex Assigned At : Social History Observation Description Sex Assigned At Male Social History Miscellaneous: Social Info Question Answer Notes Advance Care Planning Are you your own decision-maker No Do you have Power of Flooring Sales Manager for Health or [facility]? No Safety issues: Are there any firearms in the house? No Social History Social Info Question Answer Notes Household: Marital Status: Single Number of Adults in household: 2 Number of Children in Household: 0 Level of Education: Finished College Drug/Alcohol: Social Info Question Answer Notes Drugs Have you used drugs other than those for medical reasons in the past 12 months? Yes Methamphetamine? No Crack? No LSD? No Ecstacy? No Prescription opiates? No Marijuana? Yes Ketamine? No PCP? No Is there a minor (18 years or younger) at risk at home? No Are you still using? Yes Do you want treatment? No AUDIT-C (Standard) Interpretation Negative Did you have a drink contain ing alcohol in the past year? Yes How often did you have six or more drinks on one occasion in the past year? 2 to 3 times per week (3 points) How many drinks did you have on a typical day when you were drinking in the past year? 3 or 4 drinks (1 point) How often did you have a drink containing alcohol in the past year? 2 to 3 times a week (3 points) Tobacco Use: Social Info Question Answer Notes Tobacco Control (Standard) Tobacco use: Current smoker When did you start smoking? 09/04/2017 How often do you smoke cigarettes? Some days, but not every day How many cigarettes a day do you smoke? 5 or less How soon after you wake up do you smoke your first cigarette? 6-30 minutes Are you interested in quitting? 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 Notes: Alcohol use: Stopped Drinkin g Alone Or After Work Alcohol use: Stopped Drinkin g Alone Or After Work Alcohol use: Stopped Drinkin g Alone Or After Work Problems Problem Type SNOMED Code ICD Code Onset Dates Problem Status W/U Status Risk Notes Problem Generalized anxiety disorder (14667191) Generalized anxiety disorder (F41.1) Active confirmed Problem Moderate recurrent major depression (61789336) Depression, major, recurrent, moderate (F33.1) Active confirmed Problem Attention deficit hyperactivity disorder (412340093) ADHD (attention deficit hyperactivity disorder), combined type (F90.2) Active confirmed Problem Vitamin D deficiency (60202326) Vitamin D deficiency (E55.9) Active confirmed Problem Alcohol abuse (51525804) Alcohol abuse (F10.10) Active confirmed Vital Signs Heart Rate 67 /min 06/03/2025 Height-cm 185.42 cm 06/03/2025 Blood pressure diastolic 80 mm Hg 06/03/2025 Weight-kg 83.92 kg 06/03/2025 Height 73 in 06/03/2025 Blood pressure systolic 136 mm Hg 06/03/2025 Weight 185 lbs 06/03/2025 BMI 24.41 kg/m2 06/03/2025 Procedures Procedure Date Ordered Date Performed Result Body Sit e ADHD Testing 12/24/2024 N/A Cannabis Cognitive Testing 12/24/2024 N/A Encounters Encounter [facility] Date [facility] [place] [address] [place] [address] 12/24/2024 Leobardo Wolf Depression, major, recurrent, moderate F33.1 ; Alcohol abuse F10.10 ; Vitamin D deficiency E55.9 and ADHD (attention deficit hyperactivity disorder), combined type F90.2 [place] [address] [facility] [address] [place] [address] 01/06/2025 Leobardo Wolf Lack of concentratio n R41.840 and ADHD (attention deficit hyperactivity disorder), combined type F90.2 [place] [address] [facility] [address] [place] [address] 01/14/2025 Leobardo Wolf Depression, major, recurrent, moderate F33.1 ; Alcohol abuse F10.10 ; Vitamin D deficiency E55.9 and ADHD (attention deficit hyperactivity disorder), combined type F90.2 [facility] [employer] [facility], Walkin [facility] [facility] [address] [place] [address] 01/28/2025 Brinda Yulisa Generalized anxiety disorder F41.1 ; Depression, major, recurrent, moderate F33.1 and ADHD (attention deficit hyperactivity disorder), combined type F90.2 [facility] [employer] [facility], [facility] [facility] [address] [place] [address] 02/11/2025 Brinda Yulisa Generalized anxiety disorder F41.1 ; Depression, major, recurrent, moderate F33.1 ; ADHD (attention deficit hyperactivity disorder), combined type F90.2 and Encounter for screening for depression Z13.31 [place] [address] [facility] [address] [place] [address] 02/25/2025 Leobardo Wolf Encounter for screening for depression Z13.31 ; Depression, major, recurrent, moderate F33.1 ; ADHD (attention deficit hyperactivity disorder), combined type F90.2 ; Generalized anxiety disorder F41.1 and Alcohol abuse F10.10 [facility] [employer] [facility], [address] [place] [address] 02/25/2025 Brinda Yulisa Depression, major, recurrent, moderate F33.1 ; ADHD (attention deficit hyperactivity disorder), combined type F90.2 ; Generalized anxiety disorder F41.1 and Encounter for screening for depression Z13.31 [facility], Walkin [address] [address] 03/18/2025 Brinda Yulisa Generalized anxiety disorder F41.1 ; Depression, major, recurrent, moderate F33.1 ; ADHD (attention deficit hyperactivity disorder), combined type F90.2 ; Alcohol abuse F10.10 and Encounter for screening for depression Z13.31 [facility], Walk[facility] [address] [facility] [address] [address] 04/01/2025 Brinda Yulisa Generalized anxiety disorder F41.1 ; Depression, major, recurrent, moderate F33.1 ; ADHD (attention deficit hyperactivity disorder), combined type F90.2 and Encounter for screening for depression Z13.[address] [address] 04/15/2025 Tino Cook Encounter for screening for depression Z13.31 ; Generalized anxiety disorder F41.1 ; Encounter for screening for cardiovascular disorders Z13.6 and Depression, major, recurrent, moderate F33.[address] [address] 05/06/2025 Leobardo Wolf Depression, major, recurrent, moderate F33.1 ; ADHD (attention deficit hyperactivity disorder), combined type F90.2 ; Alcohol abuse F10.10 ; Generalized anxiety disorder F41.1 ; Dietary counseling and surveillance Z71.3 ; Encounter for screening for cardiovascular disorders Z13.6 ; Nicotine use Z72.0 ; Encounter for screening for depression Z13.31 and Vitamin D deficiency E55.9 [facility] [employer] [address] 05/13/2025 Tino Cook [address] [address] 06/03/2025 Tino Cook Generalized anxiety disorder F41.1 and Depression, major, recurrent, moderate F33.[address] [address] 06/03/2025 Leobardo Wolf ADHD (attention deficit hyperactivity disorder), combined type F90.2 ; Depression, major, recurrent, moderate F33.1 ; Alcohol abuse F10.10 ; Generalized anxiety disorder F41.1 ; Vitamin D deficiency E55.9 and Nicotine use Z72.0 [facility] [address] [address] 12/30/2024 [facility] [address] [address] 01/14/2025 Leobardo [facility] [address] [address] 03/03/2025 [facility] [address] [facility] [address] [place] [address] 03/09/2025 Brinda Yulisa [facility] [address] [facility] [address] [address] 04/30/2025 Leobardo Wolf Depression, major, recurrent, moderate F33.[address] [address] 10/13/2025 Leobardo Wolf Depression, major, recurrent, moderate F33.1 Assessments Encounter Date Diagnosis (ICD Code) Assessment Notes Treatment Notes Treatment Clinical Notes Section Notes 12/24/2024 Depression, major, recurrent, moderate (ICD-10 - F33.1) 12/24/2024 Vitamin D deficiency (ICD-10 - E55.9) 12/24/2024 Alcohol abuse (ICD-10 - F10.10) 01/06/2025 Lack of concentration (ICD-10 - R41.840) Analysis of ADHD Scores, THC Use, and Cognitive Test Performance 1. ADHD Rating (ASRS) Interpretation ASRS Part A Score: 6 (above the threshold of 4, indicative of ADHD symptoms) ASRS Part B Score: 9 (supports ADHD-related difficulties but is not diagnostic) Cognitive Markers Outside Typical Range: 5 (suggests multiple areas of cognitive variance) The ASRS scores suggest significant ADHD-related symptoms, particularly in executive function, attention, and impulse control. 2. Cognitive Test Results Response Inhibition (Double Trouble): Score: 87 (mildly below average) Attention (Feature Match): Score: 77 (below average, indicating reduced attention accuracy) Paired Associates (Memory Task): Score: 98 (above average, suggesting intact associative memory) Spatial Planning: Score: 94 (strong planning ability) Working Memory (Token Search): Score: 97 (strong working memory) While executive functioning and attention-based tasks show impairment, working memory and spatial planning remain strengths. 3. Correlation with THC Use Cannabis use has been associated with increased reaction time, attentional lapses, and executive dysfunction, particularly in chronic users. Inattention and impulse control deficits (evidenced by Feature Match and Double Trouble results) may be exacerbated by THC. However, the preservation of memory and spatial planning suggests possible task-specific cognitive resilience. Conclusion & Recommendations ADHD symptoms are strongly indicated, and THC use could be amplifying attention deficits. Further assessment of executive function, impulsivity, and sustained attention over time could clarify long-term cognitive impacts. Behavioral interventions or structured cognitive strategies (such as task structuring and reducing distractions) may improve functional outcomes. If THC use is frequent, reducing usage and tracking cognitive changes over time could help determine its specific impact. 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 Definitely anxiety. Just needing to talk to someone. Bottling up for years. Anxiety: Diagnosed with anxiety 4-5 years ago, end of high school. Things felt heavy, pressure. Feeling overwhelmed. Racing heart. Hand tremors. Legs bouncing, other people noticing. Talking too fast for students to understand. Nauseous. Noted that sometimes anxiety will affect appetite which will lead to lightheadedness . Racing thoughts constantly. Ruminating thoughts. Depression: I love my life. Educated by Dr. Bloom on range of depressive symptoms. Isolating. Poor social support. Low self esteem. Anger: Denied any major concerns. ADHD: Diagnosed with ADHD as a child. May be the root of depression and anxiety. Restless. Loses focus. Psychosis: Denied Sleep: Feels exhausted all the time. In the last week, falling asleep earlier than usual but also waking up earlier. Was recently having trouble falling asleep. Noted that he is now having trouble staying asleep, waking 2 hours before his alarm goes off and unable to fall back asleep. Average of 5-6 hours of sleep a night. Appetite: Noted that when he is anxious, his appetite goes down. Substance Use (type, last use, amount, frequency, withdrawal symptoms): yes marijuana. 3-4 drinks, 2-3 times a week, starting to drink less. Went from 4 beers a day to 4 beers a week. Gambling/Other Addictive Behaviors: Since lessening drinking, sports betting has decreased as well. ADLs (Hygiene, Chores, Cooking, Shopping): Some concerns with cleaning, noted that room and car got messy, low motivation to clean Interests/Skill s/Hobbies: playing video games, football Assessment and Plan: Anxiety: The patient has a history of anxiety diagnosed in high school, presenting with symptoms such as a racing heart, hand tremors, and racing thoughts. Additionally, the patient experiences sleep disturbances, including difficulty falling and staying asleep, potentially linked to anxiety. Plan: Initiate bi-weekly Cognitive Behavioral Therapy (CBT) sessions to address anxiety symptoms and enhance coping mechanisms. Recommend considering regular physical activities, like gym membership, for stress relief. Depression: Symptoms indicative of depression have been reported by the patient, including exhaustion, lack of motivation, and social withdrawal. There's also a noted history of alcohol use as a coping strategy, which has recently declined. Plan: Continue CBT to tackle depressive symptoms and explore healthier coping strategies. Monitor mood and alcohol consumption during sessions. ADHD: The patient mentions a potential childhood ADHD diagnosis and recent discussions with Dr. Herr, suggesting ADHD might underlie the anxiety and depression symptoms. Symptoms include difficulty focusing, racing thoughts, and forgetfulness. Plan: Evaluate the impact of ADHD symptoms on daily life within CBT sessions. Social Support and Trust Issues: The patient has limited social support, mainly from his mother, and experiences trust issues stemming from past friendships. The patient is not currently in a romantic relationship. Plan: Use CBT to address trust issues and strategies for fostering healthy relationships. Encourage participation in social activities and joining clubs or groups to broaden the social network. Sleep Disturbances: The patient struggles with falling asleep, maintaining sleep, and waking up earlier than desired, averaging 5-6 hours of sleep nightly. Plan: Focus on sleep hygiene and relaxation techniques during CBT sessions. Monitor sleep patterns and consider a referral to a sleep specialist if issues persist or worsen. Daily Living Activities: Reports indicate difficulty in maintaining cleanliness and organization at home, contributing to anxiety. Plan: Implement strategies for better organization and time management in CBT sessions. Encourage the establishment of a routine for cleaning and home maintenance. Communication: The patient will download the [employer] keanu to improve communication between therapy sessions. It is encouraged to reach out with any concerns or questions before the next appointment. 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 Definitely anxiety. Just needing to talk to someone. Bottling up for years. Anxiety: Diagnosed with anxiety 4-5 years ago, end of high school. Things felt heavy, pressure. Feeling overwhelmed. Racing heart. Hand tremors. Legs bouncing, other people noticing. Talking too fast for students to understand. Nauseous. Noted that sometimes anxiety will affect appetite which will lead to lightheadedness . Racing thoughts constantly. Ruminating thoughts. Depression: I love my life. Educated by Dr. Bloom on range of depressive symptoms. Isolating. Poor social support. Low self esteem. Anger: Denied any major concerns. ADHD: Diagnosed with ADHD as a child. May be the root of depression and anxiety. Restless. Loses focus. Psychosis: Denied Sleep: Feels exhausted all the time. In the last week, falling asleep earlier than usual but also waking up earlier. Was recently having trouble falling asleep. Noted that he is now having trouble staying asleep, waking 2 hours before his alarm goes off and unable to fall back asleep. Average of 5-6 hours of sleep a night. Appetite: Noted that when he is anxious, his appetite goes down. Substance Use (type, last use, amount, frequency, withdrawal symptoms): yes marijuana. 3-4 drinks, 2-3 times a week, starting to drink less. Went from 4 beers a day to 4 beers a week. Gambling/Other Addictive Behaviors: Since lessening drinking, sports betting has decreased as well. ADLs (Hygiene, Chores, Cooking, Shopping): Some concerns with cleaning, noted that room and car got messy, low motivation to clean Interests/Skill s/Hobbies: playing video games, football Assessment and Plan: Anxiety: The patient has a history of anxiety diagnosed in high school, presenting with symptoms such as a racing heart, hand tremors, and racing thoughts. Additionally, the patient experiences sleep disturbances, including difficulty falling and staying asleep, potentially linked to anxiety. Plan: Initiate bi-weekly Cognitive Behavioral Therapy (CBT) sessions to address anxiety symptoms and enhance coping mechanisms. Recommend considering regular physical activities, like gym membership, for stress relief. Depression: Symptoms indicative of depression have been reported by the patient, including exhaustion, lack of motivation, and social withdrawal. There's also a noted history of alcohol use as a coping strategy, which has recently declined. Plan: Continue CBT to tackle depressive symptoms and explore healthier coping strategies. Monitor mood and alcohol consumption during sessions. ADHD: The patient mentions a potential childhood ADHD diagnosis and recent discussions with Dr. Herr, suggesting ADHD might underlie the anxiety and depression symptoms. Symptoms include difficulty focusing, racing thoughts, and forgetfulness. Plan: Evaluate the impact of ADHD symptoms on daily life within CBT sessions. Social Support and Trust Issues: The patient has limited social support, mainly from his mother, and experiences trust issues stemming from past friendships. The patient is not currently in a romantic relationship. Plan: Use CBT to address trust issues and strategies for fostering healthy relationships. Encourage participation in social activities and joining clubs or groups to broaden the social network. Sleep Disturbances: The patient struggles with falling asleep, maintaining sleep, and waking up earlier than desired, averaging 5-6 hours of sleep nightly. Plan: Focus on sleep hygiene and relaxation techniques during CBT sessions. Monitor sleep patterns and consider a referral to a sleep specialist if issues persist or worsen. Daily Living Activities: Reports indicate difficulty in maintaining cleanliness and organization at home, contributing to anxiety. Plan: Implement strategies for better organization and time management in CBT sessions. Encourage the establishment of a routine for cleaning and home maintenance. Communication: The patient will download the Pand[employer] keanu to improve communication between therapy sessions. It is encouraged to reach out with any concerns or questions before the next appointment. 02/11/2025 Generalized anxiety disorder (ICD-10 - F41.1) 1. 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 - Difficulty managing stress due to lack of time and absence of previous stress-reductio n outlet - Reports pushing away stress rather than addressing it - Students have noticed changes in demeanor affecting work performance and interactions Plan: - Explore stress management techniques that can be implemented within limited free time - Discuss the importance of creating boundaries and advocating for adequate break times - Encourage communication with school administration about workload and stress levels - Consider developing strategies to address and process stress rather than pushing it away - Explore potential alternative stress-reductio n activities 2. Work-life balance issues Assessment: - Struggling to maintain healthy work-life balance due to demanding work schedule - Finishing work at 7 PM with 5 AM wake-up time - Limited time for personal activities or stress management - Difficulty finding time to engage in enjoyable activities or process emotions Plan: - Work to identify potential areas in schedule for brief self-care activities - Discuss the importance of setting boundaries between work and personal life - Explore time management strategies to maximize limited free time - Consider discussing ways to advocate for more balanced work schedule with employers 3. Alcohol use management Assessment: - Reports efforts to manage alcohol consumption in social situations - Successfully abstained during recent [employer] outing - Shows conscious effort to moderate drinking habits in social settings Plan: - Reinforce positive choices regarding alcohol management - Explore strategies to continue managing alcohol use in social situations - Discuss potential impact of alcohol on stress management and overall well-being Follow-up: - Schedule follow-up appointment to monitor progress and continue working on identified issues 02/11/2025 Depression, major, recurrent, moderate (ICD-10 - F33.1) 1. 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 - Difficulty managing stress due to lack of time and absence of previous stress-reductio n outlet - Reports pushing away stress rather than addressing it - Students have noticed changes in demeanor affecting work performance and interactions Plan: - Explore stress management techniques that can be implemented within limited free time - Discuss the importance of creating boundaries and advocating for adequate break times - Encourage communication with school administration about workload and stress levels - Consider developing strategies to address and process stress rather than pushing it away - Explore potential alternative stress-reductio n activities 2. Work-life balance issues Assessment: - Struggling to maintain healthy work-life balance due to demanding work schedule - Finishing work at 7 PM with 5 AM wake-up time - Limited time for personal activities or stress management - Difficulty finding time to engage in enjoyable activities or process emotions Plan: - Work to identify potential areas in schedule for brief self-care activities - Discuss the importance of setting boundaries between work and personal life - Explore time management strategies to maximize limited free time - Consider discussing ways to advocate for more balanced work schedule with employers 3. Alcohol use management Assessment: - Reports efforts to manage alcohol consumption in social situations - Successfully abstained during recent [employer] [place] outing - Shows conscious effort to moderate drinking habits in social settings Plan: - Reinforce positive choices regarding alcohol management - Explore strategies to continue managing alcohol use in social situations - Discuss potential impact of alcohol on stress management and overall well-being Follow-up: - Schedule follow-up appointment to monitor progress and continue working on identified issues 02/25/2025 Encounter for screening for depression (ICD-10 - Z13.31) 02/25/2025 Depression, major, recurrent, moderate (ICD-10 - F33.1) 1. 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 Bloom to evaluate current medication efficacy and consider potential adjustments - Encourage monitoring and documenting specific instances of inattention for next appointment 2. Elevated heart rate - Patient reports consistently elevated heart rate, with recent measurement of 98 bpm - Dr. Sims advised that heart rate above 80 bpm is considered high - Patient does not subjectively feel stressed or anxious, creating discrepancy between physiological indicators and perceived emotional state - Continue monitoring pulse rate as directed by Dr. Sims - Report to Dr. Sims if heart rate consistently remains above specified threshold - Consider potential causes of elevated heart rate, including medication side effects and underlying medical conditions 3. Reduced stress and anxiety - Patient reports significant reduction in perceived stress and anxiety levels compared to previous sessions - Patient expresses concern about potentially losing all care and questions whether this indicates lack of effort or commitment - Validate patient's self-care efforts and reframe cognitive distortions about reduced anxiety - Encourage monitoring and documenting instances of productivity and care to counter negative self-perception - Continue current stress management techniques 4. Social isolation - Patient reports spending most free time alone and has not socialized with friends since [employer] [employer] - Patient expresses comfort with solitude but awareness that constant isolation may not be healthy - Current social withdrawal appears primarily due to exhaustion from work and academic commitments - Encourage gradual increase in social interactions as energy levels allow - Discuss strategies for balancing alone time with social engagement - Monitor impact of social isolation on overall mental health in future sessions Follow-up: - Schedule follow-up appointment to monitor progress and continue working on identified issues 02/25/2025 ADHD (attention deficit hyperactivity disorder), combined type (ICD-10 - F90.2) 1. 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 Bloom to evaluate current medication efficacy and consider potential adjustments - Encourage monitoring and documenting specific instances of inattention for next appointment 2. Elevated heart rate - Patient reports consistently elevated heart rate, with recent measurement of 98 bpm - Dr. Sims advised that heart rate above 80 bpm is considered high - Patient does not subjectively feel stressed or anxious, creating discrepancy between physiological indicators and perceived emotional state - Continue monitoring pulse rate as directed by Dr. Sims - Report to Dr. Sims if heart rate consistently remains above specified threshold - Consider potential causes of elevated heart rate, including medication side effects and underlying medical conditions 3. Reduced stress and anxiety - Patient reports significant reduction in perceived stress and anxiety levels compared to previous sessions - Patient expresses concern about potentially losing all care and questions whether this indicates lack of effort or commitment - Validate patient's self-care efforts and reframe cognitive distortions about reduced anxiety - Encourage monitoring and documenting instances of productivity and care to counter negative self-perception - Continue current stress management techniques 4. Social isolation - Patient reports spending most free time alone and has not socialized with friends since [facility] [place] - Patient expresses comfort with solitude but awareness that constant isolation may not be healthy - Current social withdrawal appears primarily due to exhaustion from work and academic commitments - Encourage gradual increase in social interactions as energy levels allow - Discuss strategies for balancing alone time with social engagement - Monitor impact of social isolation on overall mental health in future sessions Follow-up: - Schedule follow-up appointment to monitor progress and continue working on identified issues 03/18/2025 Generalized anxiety disorder (ICD-10 - F41.1) 1. Alcohol use Assessment: - Patient reports improvement in alcohol consumption patterns following spring break - Demonstrates increased awareness of drinking habits, recognizing that casual or lonely drinking often leads to excessive consumption - Successfully limited alcohol intake at a recent social event, having only one beer despite being offered more - Still associates alcohol with self-reward and stress relief, suggesting ongoing risk for problematic use Plan: - Continue to monitor alcohol consumption patterns - Encourage alternative stress relief and self-reward strategies - Reinforce positive behavior changes and decision-making around alcohol use 2. Work-related stress and burnout Assessment: - Reports feeling revitalized after a break from work, indicating the effectiveness of time off - Acknowledges previous feelings of being drugged down when entering work - Has made efforts to improve work environment, including moving to a new room for change of scenery - Expresses difficulty in clocking out mentally from work - Reports experiencing impostor syndrome, though receives support from physician assistant certified coaches Plan: - Encourage implementation of clear boundaries between work and personal time - Discuss strategies for mental disengagement from work during off-hours - Explore additional self-care practices to prevent burnout - Continue to reinforce positive self-perception and acknowledge professional competence 3. Social isolation Assessment: - Reports improvement in social engagement, stating increased communication with friends and romantic interest - Represents progress from previous period described as purgatory with minimal social interaction - Increased social interaction appears to be contributing positively to overall mood and outlook Plan: - Encourage continued social engagement and relationship building - Explore potential barriers to maintaining social connections - Discuss the importance of balance between social activities and personal time Follow-up: - Schedule follow-up appointment to monitor progress and continue working on identified issues 03/18/2025 Depression, major, recurrent, moderate (ICD-10 - F33.1) 1. Alcohol use Assessment: - Patient reports improvement in alcohol consumption patterns following spring break - Demonstrates increased awareness of drinking habits, recognizing that casual or lonely drinking often leads to excessive consumption - Successfully limited alcohol intake at a recent social event, having only one beer despite being offered more - Still associates alcohol with self-reward and stress relief, suggesting ongoing risk for problematic use Plan: - Continue to monitor alcohol consumption patterns - Encourage alternative stress relief and self-reward strategies - Reinforce positive behavior changes and decision-making around alcohol use 2. Work-related stress and burnout Assessment: - Reports feeling revitalized after a break from work, indicating the effectiveness of time off - Acknowledges previous feelings of being drugged down when entering work - Has made efforts to improve work environment, including moving to a new room for change of scenery - Expresses difficulty in clocking out mentally from work - Reports experiencing impostor syndrome, though receives support from physician assistant certified coaches Plan: - Encourage implementation of clear boundaries between work and personal time - Discuss strategies for mental disengagement from work during off-hours - Explore additional self-care practices to prevent burnout - Continue to reinforce positive self-perception and acknowledge professional competence 3. Social isolation Assessment: - Reports improvement in social engagement, stating increased communication with friends and romantic interest - Represents progress from previous period described as purgatory with minimal social interaction - Increased social interaction appears to be contributing positively to overall mood and outlook Plan: - Encourage continued social engagement and relationship building - Explore potential barriers to maintaining social connections - Discuss the importance of balance between social activities and personal time Follow-up: - Schedule follow-up appointment to monitor progress and continue working on identified issues 04/01/2025 Generalized anxiety disorder (ICD-10 - F41.1) 1. Bereavement - Patient reports recent loss of great-grandmoth er, who at age 99. - Took a day off from work to grieve and attended the on Sunday. - Describes the as a celebration of life, indicating a healthy grieving process. - Mentions spending time with family and loved ones, beneficial for emotional well-being. - Appears to be coping well with the loss, showing resilience and a positive outlook. Plan: - Continue to monitor patient's grieving process and emotional state in future sessions. - Encourage ongoing connection with family and loved ones as a support system. 2. 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 - Demonstrates improved coping skills, noting better management of anxiety without spiraling into stress and depression. - Has developed more effective relaxation techniques and a more balanced perspective on daily stressors and future concerns. Plan: - Continue to reinforce and encourage use of effective stress management and relaxation techniques. 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 - Explore additional time management and organizational strategies to help balance multiple responsibilitie s. 3. New romantic relationship - Reports new romantic relationship, described as a positive change in mood. - Expresses that relationship provides emotional support and helps cope with stress. - Notes concerns about budgeting and financial manager due to spending on activities with new partner. Plan: - Discuss strategies for maintaining a healthy [id number] ionship balance. - Explore budgeting techniques and financial manager skills to address concerns about spending. - Monitor impact of new relationship on overall emotional well-being and stress levels. 04/01/2025 Depression, major, recurrent, moderate (ICD-10 - F33.1) 1. Bereavement - Patient reports recent loss of great-grandmoth robbie, who at age 99. - Took a day off from work to grieve and attended the on Sunday. - Describes the as a celebration of life, indicating a healthy grieving process. - Mentions spending time with family and loved ones, beneficial for emotional well-being. - Appears to be coping well with the loss, showing resilience and a positive outlook. Plan: - Continue to monitor patient's grieving process and emotional state in future sessions. - Encourage ongoing connection with family and loved ones as a support system. 2. 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 - Demonstrates improved coping skills, noting better management of anxiety without spiraling into stress and depression. - Has developed more effective relaxation techniques and a more balanced perspective on daily stressors and future concerns. Plan: - Continue to reinforce and encourage use of effective stress management and relaxation techniques. 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 - Explore additional time management and organizational strategies to help balance multiple responsibilitie s. 3. New romantic relationship - Reports new romantic relationship, described as a positive change in mood. - Expresses that relationship provides emotional support and helps cope with stress. - Notes concerns about budgeting and financial manager due to spending on activities with new partner. Plan: - Discuss strategies for maintaining a healthy xtup-ifva-spfhx ionship balance. - Explore budgeting techniques and financial manager skills to address concerns about spending. - Monitor impact of new relationship on overall emotional well-being and stress levels. 04/15/2025 Generalized anxiety disorder (ICD-10 - F41.1) 04/15/2025 Encounter for screening for depression (ICD-10 - Z13.31) 04/30/2025 Depression, major, recurrent, moderate (ICD-10 - F33.1) 05/06/2025 Depression, major, recurrent, moderate (ICD-10 - F33.1) Patient reports improvement in depression symptoms. Continues Lexapro for depression management. - Continue Lexapro 20 mg daily. - Monitor mental health and adjust treatment as needed. 05/06/2025 ADHD (attention deficit hyperactivity disorder), combined type (ICD-10 - F90.2) Electronic Prior Authorization was requested for Qelbree 200 MG Capsule Extended Release 24 Hour. Provider can order medication once approval received. Patient reports worsening ADHD symptoms after stopping Strattera. Considering non-stimulant options first due to side effects. - Consider prior authorization for Crumpy as an alternative to Strattera. - Monitor ADHD symptoms and adjust treatment as needed. - Consider low dose Adderall if Crumpy is denied. 06/03/2025 ADHD (attention deficit hyperactivity disorder), combined type (ICD-10 - F90.2) Patient reports continued ADHD symptoms, such as fidgeting. Symptoms are not significantly impacting daily life. Patient is using promotoral technique to manage focus. - Continue using promotoral technique to manage ADHD symptoms. - Consider breaking tasks into shorter intervals with scheduled breaks. - Monitor symptoms and adjust medication dosage if necessary. 06/03/2025 Generalized anxiety disorder (ICD-10 - F41.1) 06/03/2025 Depression, major, recurrent, moderate (ICD-10 - F33.1) 10/13/2025 Depression, major, recurrent, moderate (ICD-10 - F33.1) Electronic Prior Authorization was requested for Qelbree 200 MG Capsule Extended Release 24 Hour. Provider can order medication once approval received. 06/03/2025 Alcohol abuse (ICD-10 - F10.10) Patient reports indulging in alcohol during a recent trip. Shift from binge drinking alone to social drinking pattern. Desire to binge drink still present but suppressed by social context. - Continue working on reducing alcohol consumption. - Consider abstinence as the best approach for managing alcohol use. - Monitor drinking habits and seek support if needed. 05/06/2025 Alcohol abuse (ICD-10 - F10.10) Patient reports improved drinking habits. Continues to use naltrexone for alcohol management. - Continue naltrexone 50 mg daily. - Monitor alcohol consumption and encourage moderation. 06/03/2025 Depression, major, recurrent, moderate (ICD-10 - F33.1) 04/15/2025 Encounter for screening for cardiovascular disorders (ICD-10 - Z13.6) 04/01/2025 ADHD (attention deficit hyperactivity disorder), combined type (ICD-10 - F90.2) 1. Bereavement - Patient reports recent loss of great-grandmoezio avalos, who at age 99. - Took a day off from work to grieve and attended the on Sunday. - Describes the as a celebration of life, indicating a healthy grieving process. - Mentions spending time with family and loved ones, beneficial for emotional well-being. - Appears to be coping well with the loss, showing resilience and a positive outlook. Plan: - Continue to monitor patient's grieving process and emotional state in future sessions. - Encourage ongoing connection with family and loved ones as a support system. 2. 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 - Demonstrates improved coping skills, noting better management of anxiety without spiraling into stress and depression. - Has developed more effective relaxation techniques and a more balanced perspective on daily stressors and future concerns. Plan: - Continue to reinforce and encourage use of effective stress management and relaxation techniques. 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 - Explore additional time management and organizational strategies to help balance multiple responsibilitie s. 3. New romantic relationship - Reports new romantic relationship, described as a positive change in mood. - Expresses that relationship provides emotional support and helps cope with stress. - Notes concerns about budgeting and financial manager due to spending on activities with new partner. Plan: - Discuss strategies for maintaining a healthy crsa-ztys-vpwzx ionship balance. - Explore budgeting techniques and financial manager skills to address concerns about spending. - Monitor impact of new relationship on overall emotional well-being and stress levels. 03/18/2025 ADHD (attention deficit hyperactivity disorder), combined type (ICD-10 - F90.2) 1. Alcohol use Assessment: - Patient reports improvement in alcohol consumption patterns following spring break - Demonstrates increased awareness of drinking habits, recognizing that casual or lonely drinking often leads to excessive consumption - Successfully limited alcohol intake at a recent social event, having only one beer despite being offered more - Still associates alcohol with self-reward and stress relief, suggesting ongoing risk for problematic use Plan: - Continue to monitor alcohol consumption patterns - Encourage alternative stress relief and self-reward strategies - Reinforce positive behavior changes and decision-making around alcohol use 2. Work-related stress and burnout Assessment: - Reports feeling revitalized after a break from work, indicating the effectiveness of time off - Acknowledges previous feelings of being drugged down when entering work - Has made efforts to improve work environment, including moving to a new room for change of scenery - Expresses difficulty in clocking out mentally from work - Reports experiencing impostor syndrome, though receives support from physician assistant certified coaches Plan: - Encourage implementation of clear boundaries between work and personal time - Discuss strategies for mental disengagement from work during off-hours - Explore additional self-care practices to prevent burnout - Continue to reinforce positive self-perception and acknowledge professional competence 3. Social isolation Assessment: - Reports improvement in social engagement, stating increased communication with friends and romantic interest - Represents progress from previous period described as purgatory with minimal social interaction - Increased social interaction appears to be contributing positively to overall mood and outlook Plan: - Encourage continued social engagement and relationship building - Explore potential barriers to maintaining social connections - Discuss the importance of balance between social activities and personal time Follow-up: - Schedule follow-up appointment to monitor progress and continue working on identified issues 02/25/2025 Depression, major, recurrent, moderate (ICD-10 - F33.1) 02/11/2025 ADHD (attention deficit hyperactivity disorder), combined type (ICD-10 - F90.2) 1. 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 - Difficulty managing stress due to lack of time and absence of previous stress-reductio n outlet - Reports pushing away stress rather than addressing it - Students have noticed changes in demeanor affecting work performance and interactions Plan: - Explore stress management techniques that can be implemented within limited free time - Discuss the importance of creating boundaries and advocating for adequate break times - Encourage communication with school administration about workload and stress levels - Consider developing strategies to address and process stress rather than pushing it away - Explore potential alternative stress-reductio n activities 2. Work-life balance issues Assessment: - Struggling to maintain healthy work-life balance due to demanding work schedule - Finishing work at 7 PM with 5 AM wake-up time - Limited time for personal activities or stress management - Difficulty finding time to engage in enjoyable activities or process emotions Plan: - Work to identify potential areas in schedule for brief self-care activities - Discuss the importance of setting boundaries between work and personal life - Explore time management strategies to maximize limited free time - Consider discussing ways to advocate for more balanced work schedule with employers 3. Alcohol use management Assessment: - Reports efforts to manage alcohol consumption in social situations - Successfully abstained during recent [place] Day outing - Shows conscious effort to moderate drinking habits in social settings Plan: - Reinforce positive choices regarding alcohol management - Explore strategies to continue managing alcohol use in social situations - Discuss potential impact of alcohol on stress management and overall well-being Follow-up: - Schedule follow-up appointment to monitor progress and continue working on identified issues 02/25/2025 Generalized anxiety disorder (ICD-10 - F41.1) 1. 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 Bloom to evaluate current medication efficacy and consider potential adjustments - Encourage monitoring and documenting specific instances of inattention for next appointment 2. Elevated heart rate - Patient reports consistently elevated heart rate, with recent measurement of 98 bpm - Dr. Sims advised that heart rate above 80 bpm is considered high - Patient does not subjectively feel stressed or anxious, creating discrepancy between physiological indicators and perceived emotional state - Continue monitoring pulse rate as directed by Dr. Sims - Report to Dr. Sims if heart rate consistently remains above specified threshold - Consider potential causes of elevated heart rate, including medication side effects and underlying medical conditions 3. Reduced stress and anxiety - Patient reports significant reduction in perceived stress and anxiety levels compared to previous sessions - Patient expresses concern about potentially losing all care and questions whether this indicates lack of effort or commitment - Validate patient's self-care efforts and reframe cognitive distortions about reduced anxiety - Encourage monitoring and documenting instances of productivity and care to counter negative self-perception - Continue current stress management techniques 4. Social isolation - Patient reports spending most free time alone and has not socialized with friends since [place] [place] - Patient expresses comfort with solitude but awareness that constant isolation may not be healthy - Current social withdrawal appears primarily due to exhaustion from work and academic commitments - Encourage gradual increase in social interactions as energy levels allow - Discuss strategies for balancing alone time with social engagement - Monitor impact of social isolation on overall mental health in future sessions Follow-up: - Schedule follow-up appointment to monitor progress and continue working on identified issues 01/28/2025 ADHD (attention deficit hyperactivity disorder), combined type (ICD-10 - F90.2) Marital Status: Single Living Arrangement: parents Support System: parents, specifically mom Highest Level of Education: bachelor's, currently in college for Master's 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 Definitely anxiety. Just needing to talk to someone. Bottling up for years. Anxiety: Diagnosed with anxiety 4-5 years ago, end of high school. Things felt heavy, pressure. Feeling overwhelmed. Racing heart. Hand tremors. Legs bouncing, other people noticing. Talking too fast for students to understand. Nauseous. Noted that sometimes anxiety will affect appetite which will lead to lightheadedness . Racing thoughts constantly. Ruminating thoughts. Depression: I love my life. Educated by Dr. Bloom on range of depressive symptoms. Isolating. Poor social support. Low self esteem. Anger: Denied any major concerns. ADHD: Diagnosed with ADHD as a child. May be the root of depression and anxiety. Restless. Loses focus. Psychosis: Denied Sleep: Feels exhausted all the time. In the last week, falling asleep earlier than usual but also waking up earlier. Was recently having trouble falling asleep. Noted that he is now having trouble staying asleep, waking 2 hours before his alarm goes off and unable to fall back asleep. Average of 5-6 hours of sleep a night. Appetite: Noted that when he is anxious, his appetite goes down. Substance Use (type, last use, amount, frequency, withdrawal symptoms): yes marijuana. 3-4 drinks, 2-3 times a week, starting to drink less. Went from 4 beers a day to 4 beers a week. Gambling/Other Addictive Behaviors: Since lessening drinking, sports betting has decreased as well. ADLs (Hygiene, Chores, Cooking, Shopping): Some concerns with cleaning, noted that room and car got messy, low motivation to clean Interests/Skill s/Hobbies: playing video games, football Assessment and Plan: Anxiety: The patient has a history of anxiety diagnosed in high school, presenting with symptoms such as a racing heart, hand tremors, and racing thoughts. Additionally, the patient experiences sleep disturbances, including difficulty falling and staying asleep, potentially linked to anxiety. Plan: Initiate bi-weekly Cognitive Behavioral Therapy (CBT) sessions to address anxiety symptoms and enhance coping mechanisms. Recommend considering regular physical activities, like gym membership, for stress relief. Depression: Symptoms indicative of depression have been reported by the patient, including exhaustion, lack of motivation, and social withdrawal. There's also a noted history of alcohol use as a coping strategy, which has recently declined. Plan: Continue CBT to tackle depressive symptoms and explore healthier coping strategies. Monitor mood and alcohol consumption during sessions. ADHD: The patient mentions a potential childhood ADHD diagnosis and recent discussions with Dr. Herr, suggesting ADHD might underlie the anxiety and depression symptoms. Symptoms include difficulty focusing, racing thoughts, and forgetfulness. Plan: Evaluate the impact of ADHD symptoms on daily life within CBT sessions. Social Support and Trust Issues: The patient has limited social support, mainly from his mother, and experiences trust issues stemming from past friendships. The patient is not currently in a romantic relationship. Plan: Use CBT to address trust issues and strategies for fostering healthy relationships. Encourage participation in social activities and joining clubs or groups to broaden the social network. Sleep Disturbances: The patient struggles with falling asleep, maintaining sleep, and waking up earlier than desired, averaging 5-6 hours of sleep nightly. Plan: Focus on sleep hygiene and relaxation techniques during CBT sessions. Monitor sleep patterns and consider a referral to a sleep specialist if issues persist or worsen. Daily Living Activities: Reports indicate difficulty in maintaining cleanliness and organization at home, contributing to anxiety. Plan: Implement strategies for better organization and time management in CBT sessions. Encourage the establishment of a routine for cleaning and home maintenance. Communication: The patient will download the Pandor[employer] keanu to improve communication between therapy sessions. It is encouraged to reach out with any concerns or questions before the next appointment. 01/14/2025 Alcohol abuse (ICD-10 - F10.10) 01/06/2025 ADHD (attention deficit hyperactivity disorder), combined type (ICD-10 - F90.2) 12/24/2024 ADHD (attention deficit hyperactivity disorder), combined type (ICD-10 - F90.2) 01/14/2025 Vitamin D deficiency (ICD-10 - E55.9) 02/11/2025 Encounter for screening for depression (ICD-10 - Z13.31) 1. 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 - Difficulty managing stress due to lack of time and absence of previous stress-reductio n outlet - Reports pushing away stress rather than addressing it - Students have noticed changes in demeanor affecting work performance and interactions Plan: - Explore stress management techniques that can be implemented within limited free time - Discuss the importance of creating boundaries and advocating for adequate break times - Encourage communication with school administration about workload and stress levels - Consider developing strategies to address and process stress rather than pushing it away - Explore potential alternative stress-reductio n activities 2. Work-life balance issues Assessment: - Struggling to maintain healthy work-life balance due to demanding work schedule - Finishing work at 7 PM with 5 AM wake-up time - Limited time for personal activities or stress management - Difficulty finding time to engage in enjoyable activities or process emotions Plan: - Work to identify potential areas in schedule for brief self-care activities - Discuss the importance of setting boundaries between work and personal life - Explore time management strategies to maximize limited free time - Consider discussing ways to advocate for more balanced work schedule with employers 3. Alcohol use management Assessment: - Reports efforts to manage alcohol consumption in social situations - Successfully abstained during recent [place] outing - Shows conscious effort to moderate drinking habits in social settings Plan: - Reinforce positive choices regarding alcohol management - Explore strategies to continue managing alcohol use in social situations - Discuss potential impact of alcohol on stress management and overall well-being Follow-up: - Schedule follow-up appointment to monitor progress and continue working on identified issues 02/25/2025 Encounter for screening for depression (ICD-10 - Z13.31) 1. 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 Bloom to evaluate current medication efficacy and consider potential adjustments - Encourage monitoring and documenting specific instances of inattention for next appointment 2. Elevated heart rate - Patient reports consistently elevated heart rate, with recent measurement of 98 bpm - Dr. Sims advised that heart rate above 80 bpm is considered high - Patient does not subjectively feel stressed or anxious, creating discrepancy between physiological indicators and perceived emotional state - Continue monitoring pulse rate as directed by Dr. Sims - Report to Dr. Sims if heart rate consistently remains above specified threshold - Consider potential causes of elevated heart rate, including medication side effects and underlying medical conditions 3. Reduced stress and anxiety - Patient reports significant reduction in perceived stress and anxiety levels compared to previous sessions - Patient expresses concern about potentially losing all care and questions whether this indicates lack of effort or commitment - Validate patient's self-care efforts and reframe cognitive distortions about reduced anxiety - Encourage monitoring and documenting instances of productivity and care to counter negative self-perception - Continue current stress management techniques 4. Social isolation - Patient reports spending most free time alone and has not socialized with friends since [place] [place] - Patient expresses comfort with solitude but awareness that constant isolation may not be healthy - Current social withdrawal appears primarily due to exhaustion from work and academic commitments - Encourage gradual increase in social interactions as energy levels allow - Discuss strategies for balancing alone time with social engagement - Monitor impact of social isolation on overall mental health in future sessions Follow-up: - Schedule follow-up appointment to monitor progress and continue working on identified issues 02/25/2025 ADHD (attention deficit hyperactivity disorder), combined type (ICD-10 - F90.2) 03/18/2025 Alcohol abuse (ICD-10 - F10.10) 1. Alcohol use Assessment: - Patient reports improvement in alcohol consumption patterns following spring break - Demonstrates increased awareness of drinking habits, recognizing that casual or lonely drinking often leads to excessive consumption - Successfully limited alcohol intake at a recent social event, having only one beer despite being offered more - Still associates alcohol with self-reward and stress relief, suggesting ongoing risk for problematic use Plan: - Continue to monitor alcohol consumption patterns - Encourage alternative stress relief and self-reward strategies - Reinforce positive behavior changes and decision-making around alcohol use 2. Work-related stress and burnout Assessment: - Reports feeling revitalized after a break from work, indicating the effectiveness of time off - Acknowledges previous feelings of being drugged down when entering work - Has made efforts to improve work environment, including moving to a new room for change of scenery - Expresses difficulty in clocking out mentally from work - Reports experiencing impostor syndrome, though receives support from physician assistant certified coaches Plan: - Encourage implementation of clear boundaries between work and personal time - Discuss strategies for mental disengagement from work during off-hours - Explore additional self-care practices to prevent burnout - Continue to reinforce positive self-perception and acknowledge professional competence 3. Social isolation Assessment: - Reports improvement in social engagement, stating increased communication with friends and romantic interest - Represents progress from previous period described as purgatory with minimal social interaction - Increased social interaction appears to be contributing positively to overall mood and outlook Plan: - Encourage continued social engagement and relationship building - Explore potential barriers to maintaining social connections - Discuss the importance of balance between social activities and personal time Follow-up: - Schedule follow-up appointment to monitor progress and continue working on identified issues 04/01/2025 Encounter for screening for depression (ICD-10 - Z13.31) 1. Bereavement - Patient reports recent loss of great-grandmoth robbie, who at age 99. - Took a day off from work to grieve and attended the on Sunday. - Describes the as a celebration of life, indicating a healthy grieving process. - Mentions spending time with family and loved ones, beneficial for emotional well-being. - Appears to be coping well with the loss, showing resilience and a positive outlook. Plan: - Continue to monitor patient's grieving process and emotional state in future sessions. - Encourage ongoing connection with family and loved ones as a support system. 2. 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 - Demonstrates improved coping skills, noting better management of anxiety without spiraling into stress and depression. - Has developed more effective relaxation techniques and a more balanced perspective on daily stressors and future concerns. Plan: - Continue to reinforce and encourage use of effective stress management and relaxation techniques. 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 - Explore additional time management and organizational strategies to help balance multiple responsibilitie s. 3. New romantic relationship - Reports new romantic relationship, described as a positive change in mood. - Expresses that relationship provides emotional support and helps cope with stress. - Notes concerns about budgeting and financial manager due to spending on activities with new partner. Plan: - Discuss strategies for maintaining a healthy [id number] ionship balance. - Explore budgeting techniques and financial manager skills to address concerns about spending. - Monitor impact of new relationship on overall emotional well-being and stress levels. 06/03/2025 Generalized anxiety disorder (ICD-10 - F41.1) 05/06/2025 Generalized anxiety disorder (ICD-10 - F41.1) Patient reports improvement in anxiety symptoms. Continues Lexapro for anxiety management. - Continue Lexapro 20 mg daily. - Monitor mental health and adjust treatment as needed. 04/15/2025 Depression, major, recurrent, moderate (ICD-10 - F33.1) 05/06/2025 Dietary counseling and surveillance (ICD-10 - Z71.3) 06/03/2025 Vitamin D deficiency (ICD-10 - E55.9) Patient continues vitamin D supplementation. - Continue vitamin D supplementation. - Monitor vitamin D levels as needed. 02/25/2025 Alcohol abuse (ICD-10 - F10.10) 03/18/2025 Encounter for screening for depression (ICD-10 - Z13.31) 1. Alcohol use Assessment: - Patient reports improvement in alcohol consumption patterns following spring break - Demonstrates increased awareness of drinking habits, recognizing that casual or lonely drinking often leads to excessive consumption - Successfully limited alcohol intake at a recent social event, having only one beer despite being offered more - Still associates alcohol with self-reward and stress relief, suggesting ongoing risk for problematic use Plan: - Continue to monitor alcohol consumption patterns - Encourage alternative stress relief and self-reward strategies - Reinforce positive behavior changes and decision-making around alcohol use 2. Work-related stress and burnout Assessment: - Reports feeling revitalized after a break from work, indicating the effectiveness of time off - Acknowledges previous feelings of being drugged down when entering work - Has made efforts to improve work environment, including moving to a new room for change of scenery - Expresses difficulty in clocking out mentally from work - Reports experiencing impostor syndrome, though receives support from physician assistant certified coaches Plan: - Encourage implementation of clear boundaries between work and personal time - Discuss strategies for mental disengagement from work during off-hours - Explore additional self-care practices to prevent burnout - Continue to reinforce positive self-perception and acknowledge professional competence 3. Social isolation Assessment: - Reports improvement in social engagement, stating increased communication with friends and romantic interest - Represents progress from previous period described as purgatory with minimal social interaction - Increased social interaction appears to be contributing positively to overall mood and outlook Plan: - Encourage continued social engagement and relationship building - Explore potential barriers to maintaining social connections - Discuss the importance of balance between social activities and personal time Follow-up: - Schedule follow-up appointment to monitor progress and continue working on identified issues 02/25/2025 Generalized anxiety disorder (ICD-10 - F41.1) 01/14/2025 ADHD (attention deficit hyperactivity disorder), combined type (ICD-10 - F90.2) 06/03/2025 Nicotine use (ICD-10 - Z72.0) 05/06/2025 Encounter for screening for cardiovascular disorders (ICD-10 - Z13.6) 05/06/2025 Nicotine use (ICD-10 - Z72.0) 05/06/2025 Encounter for screening for depression (ICD-10 - Z13.31) 05/06/2025 Vitamin D deficiency (ICD-10 - E55.9) Patient continues vitamin D supplementation. - Continue vitamin D supplementation. - Monitor vitamin D levels as needed. 12/24/2024 Other Learning About Depression Screening material was printed Learning About Depression Screening material was printed Anxiety - Assessment: Patient reports anxiety symptoms since late high school, around age 16. - Plan: - Continue Lexapro (escitalopram) 20 mg once daily. - Consider referral to a therapist for cognitive-behavi oral therapy (CBT) or other appropriate counseling services, such as [facility]. ADHD - Assessment: Patient reports symptoms such as difficulty focusing, racing thoughts, and feeling overwhelmed. - Plan: - Schedule ADHD testing in 2 weeks. - Based on the results of the testing, consider appropriate pharmacological and non-pharmacologi kartik interventions. Depression - Assessment: Current PHQ-9 score is 11, indicating mild to moderate depression. - Plan: - Monitor depression symptoms and response to Lexapro. - Assess the need for additional pharmacological or non-pharmacologi kartik interventions, such as therapy, if symptoms persist or worsen. Alcohol Use Disorder - Assessment: Patient reports recent reduction in drinking from 5-6 beers daily to occasional small amounts. - Plan: - Initiate naltrexone to help reduce alcohol cravings, to be taken around noon daily. - Encourage patient to attend support groups or seek counseling for alcohol use disorder. - Monitor patient's progress in reducing alcohol consumption. Vitamin Deficiencies - Assessment: Patient reports inconsistent use of vitamin supplements. - Plan: - Encourage daily intake of vitamin B12, vitamin C, and vitamin D supplements, especially during withdrawal. Insomnia - Assessment: Patient reports improvement in sleep recently. Currently using marijuana for sleep. - Plan: - Monitor patient's sleep patterns and response to current marijuana use for sleep. - Consider alternative pharmacological or non-pharmacologi kartik interventions for insomnia if needed. Migraines - Plan: - Continue Imitrex or Maxalt as needed, along with Aleve, acetaminophen, aspirin, and caffeine for migraine management. Laboratory Tests - Plan: - Order blood work to assess liver function and other concerns related to alcohol consumption. - Instruct patient to complete blood work at [facility], preferably with overnight fasting. Follow-up - Plan: - Schedule a follow-up appointment after ADHD testing and blood work results are available to discuss findings and adjust treatment plan as necessary. - Send prescription to [facility]. Marijuana Use - Assessment: Patient reports using electronic vape pen every other day before bed. - Plan: - Discuss long-term plan to discontinue marijuana use for sleep. 01/14/2025 Other Anxiety - Assessment: Patient is currently being treated for anxiety. - Plan: - Continue Escitalopram 20 mg daily. - Refer to a counselor for therapy, considering [facility] for crisis intervention if needed. - Monitor for any worsening of symptoms or increased alcohol consumption. Alcohol Use Disorder - Assessment: Patient has a history of alcohol use disorder. - Plan: - Continue Naltrexone as needed for cravings. - Encourage continued reduction in alcohol consumption. - Follow-up in 6 weeks or sooner if alcohol binges increase. ADHD - Assessment: Patient has been diagnosed with ADHD. - Plan: - Initiate Atomoxetine 40 mg daily for 1 week, then increase to 80 mg daily. - Prefer dosing in the evening. - Monitor for side effects such as upset stomach, nausea, and vomiting. Hyperlipidemia - Assessment: Patient has hyperlipidemia. - Plan: - Encourage lifestyle modifications (diet, exercise). - Monitor cholesterol levels. - Take a daily vitamin. Vitamin D Deficiency - Assessment: Patient has a vitamin D deficiency. - Plan: - Continue prescribed Vitamin D supplementation. - Monitor Vitamin D levels. Low Serum Folate - Assessment: Patient has low serum folate levels. - Plan: - Prescribe folic acid supplementation. - Monitor serum folate levels. Coordination of Care - Plan: - Send a note to Dr. Mejia with the patient's results and treatment plan. - Ensure the patient has a prescription for Lexapro from Dr. Arndt or Dr. Sims. Cognitive Function and Cannabis Use - Assessment: Patient's cognitive function may be affected by cannabis use. - Plan: - Discuss the impact of cannabis use on cognitive function and reaction time. - Encourage reduction in cannabis use, especially during weekdays. Follow-up - Plan: - Schedule a follow-up appointment in 6 weeks to assess progress and adjust treatment as needed. 02/25/2025 Other Problem-Based Assessment and Plan Gino Rossi, a patient with a history of anxiety, depression, and alcohol use, reports improvement in mood symptoms but increased episodes of zoning out over the past two weeks. Anxiety and Depression Assessment: Patient reports significant improvement in anxiety and depression symptoms over the past two weeks, describing it as his best period. This improvement coincides with current medication regimen including escitalopram and naltrexone. The reduction in anxiety and depression symptoms has allowed the patient to notice other symptoms more clearly, such as episodes of zoning out. Plan: - Continue escitalopram 20 mg PO daily for depression and anxiety - Continue naltrexone 50 mg PO daily for craving management - Follow up in 2 months Attention Deficit Hyperactivity Disorder (ADHD) Assessment: Patient reports increased episodes of zoning out in the past week and a half, which may be more noticeable due to reduced anxiety and depression symptoms. These episodes involve brief periods of inattention lasting about 5 seconds, occurring during various activities such as talking to children or helping them read. The patient is currently on atomoxetine for ADHD management. Plan: - Increase atomoxetine to 100 mg PO daily for ADHD management - Advised patient to monitor heart rate due to dose increase - Follow up in 2 months Alcohol Use Assessment: Patient reports improvement in alcohol intake, with current consumption at 5-6 drinks (beers) per week. This represents a decrease from previous levels, though the patient acknowledges a history of increasing alcohol use and expresses a desire to continue reducing intake. Plan: - Continue naltrexone 50 mg PO daily for craving management - Encouraged further reduction in alcohol intake - Follow up in 2 months Elevated Heart Rate Assessment: Patient reports recent consultation with Dr. Mejia, who noted elevated heart rate in the 80s and 90s. The cause of the elevated heart rate is not specified but may be related to current medications or other factors. Plan: - Advised patient to monitor pulse regularly - Follow up with Dr. Mejia if elevated heart rate persists for a few weeks - Monitor heart rate in context of atomoxetine dose increase Nutritional Supplementation Assessment: Patient is currently taking vitamin D and folic acid supplements as part of their treatment regimen. The specific indications for these supplements are not mentioned in the transcript. Plan: - Continue vitamin D 1 capsule PO weekly - Continue folic acid 1 mg PO daily Disclaimer: This note has been transcribed using speech recognition software and serves as a reflection of the patient's visit. While efforts have been made to ensure accuracy, there may be errors, including bed placement coordinator inaccuracies and misspellings of medication names. This document should not be considered a verbatim record, and any discrepancies should be verified with the provider. 06/03/2025 Other Client participated in individual psychotherapy([facility] T/Supportive) related to their hx of depression and anxiety. Based on today's session continued psychotherapy is recommended with no changes to treatment plan. Client presented to session well groomed and fully oriented with no risk of harm to self or others. Client verbal and engaged throughout session with appropriate mood and affect. Reported upon presentation that he has been doing all right since last seen on 04.15.2025. Added that he now has a girlfriend and spent the 29 of May weekend with her and her parents at [facility]. Noted that while he had a good time he did forget to take his Lexapro which caused him to feel weird. Added that he has been busy with work and 5 summer classes. Stated that he recently changes medication for ADD due to adverse side effect, sweating too much. Focus of session on establishing rapport building trust and helping client identify irrational and faulty thoughts and beliefs which have supported and fueled depression and anxiety. Client receptive to session feedback. Next session in four weeks. Plan Of Treatment Pending Test Test Name Order Date ADHD Testing 12/24/2024 Cannabis Cognitive Testing 12/24/2024 Insurance Providers Payer Name Payer Address Payer Phone Subscriber Number Group Number Insured Name Patient Relationship to Insured Coverage Start Date Coverage End Date [facility] [address] [place] [phone] [id number] Gino Rossi Self - patient is the insured Medical (General) History Medical History History ICD Code Past Psychiatric History: Anxiety Disord er abdominal aortic aneurysm: No atrial fibrillation: No chronic fatigue syndrome: No essential tremor: Yes hyperlipidemia: No hypertension: No Parkinson's disease: No restless leg syndrome: Yes stroke: No subdural hematoma: No type 1 diabetes mellitus: No type 2 diabetes mellitus: No vitamin B12 deficiency: No vitamin D deficiency: No
--- OUTSIDE RECORDS SUMMARY | 2025-10-20 10:35 | XMS_ITS | Clinical Summary ---
Author Organization [facility] Address [address] [address] Phone Care Team Providers Care Paperhanger Apprentice Name Role Phone Beto Burt MD Primary Care Provider [phone] Allergies Active Allergy Reactions Criticality Noted Date Comments Promethazine Hcl Hallucinations 02/01/2018 Medications omeprazole (PRILOSEC) 20 MG CAPSULE DELAYED RELEASE Take 20 mg by mouth daily. Active Topiramate (TOPAMAX) 50 MG Tablet Take 50 mg by mouth 2 times daily. Active Multiple Vitamins-Mineral s (MULTIVITAL PO) Take 1 Tab by mouth daily. 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 Gender Identity Not on file Sexual Orientation Not on file Occupation Industry Job Start Date Job End Date Student Not on file Not on file Not on file Last Filed Vital Signs Vital Sign Reading Time Taken Comments Blood Pressure 102/73 02/04/2018 11:59 AM CDT Pulse 50 02/04/2018 10:35 AM CDT Temperature 36 C (96.8 F) 02/04/2018 11:59 AM CDT Respiratory Rate 13 02/04/2018 11:59 AM CDT Oxygen Saturation 100% 02/04/2018 11:59 AM CDT Inhaled Oxygen Concentration - - Weight 72.6 kg (160 lb) 02/01/2018 1:00 PM MANAGER [employer]ATIONS Height 185.4 cm (6' 1) 02/01/2018 1:00 PM MANAGER [employer]ATIONS Body Mass Index 21.11 02/01/2018 1:00 PM MANAGER [employer]IGATIONS Plan of Treatment Health Maintenance Due Date Last Done Comments Hepatitis C Virus (HCV) Screening 2000 TdaP Immunization 2000 Human Papillomavirus (HPV) Immunization (1 - Male 3-dose series) 2015 Hepatitis B Immunization (1 of 3 - 19+ 3-dose series) 2019 Influenza Immunization (#1) 2025 SARS-COV-2 Immunization (1 - season) 2025 Respiratory Syncytial Virus (RSV) Immunization (Adult) (1 - 1-dose 75+ series) 2075 Meningococcal Immunization (ACWY) Aged Out No longer eligible based on patient's age to complete this topic Pneumococcal Immunization Combined Aged Out No longer eligible based on patient's age to complete this topic Rotavirus Immunization Aged Out No lo nger eligible based on patient's age to complete this topic Insurance [id number] Care Teams Paperhanger Apprentice Relationship Specialty Start Date End Date Beto Burt MD [address] [place] [address] PCP - General Family Medicine 01/28/18
--- OUTSIDE RECORDS SUMMARY | 2025-10-20 10:35 | XMS_ITS | Clinical Summary ---
Author Organization [facility] Address [address] [place] [id number] Care Team Providers Care Revenue Coordinator Name Role Phone Unavailable Primary Care Provider Unavailabl e Allergies Active Allergy Reactions Criticality Noted Date Comments Promethazine Other/Unknown (See Comments) 10/19 Medications Topiramate (TOPAMAX PO) Take Active Active Problems Problem Noted Date Diagnosed Date Testicle pain 10/19/2021 Social History Tobacco Use Types Packs/Day Years Used Date Smoking Tobacco: Never Smokeless Tobacco: Never Alcohol Use Standard Drinks/Week Comments Not Currently 0 (1 standard drink = 0.6 oz pur e alcohol) socially Alcohol Use Answer Date Recorded Frequency of Alcohol Consumption Not on file 05/12/2024 Average Number of Drinks Not on file 024 Frequency of Binge Drinking Not on file 04/26 Alcohol Use Status Not Currently 05/12/2024 Average alcohol consumption Not on file 04/26 Sex and Gender Information Value Date Recorded Sex Assigned at Not on file Legal Sex Male 12:29 PM REFERRAL MANAGER Gender Identity Not on file Sexual Orientation Not on file Last Filed Vital Signs Vital Sign Reading Time Taken Comments Blood Pressure 117/68 10/20/2021 8:10 AM REFERRAL MANAGER Pulse 58 10/20/2021 8:10 AM REFERRAL MANAGER Temperature 36.6 C (97.8 F) 10/20/2021 8:10 AM REFERRAL MANAGER Respiratory Rate 16 10/20/2021 8:10 AM REFERRAL MANAGER Oxygen Saturation 94% 10/20/2021 8:10 AM REFERRAL MANAGER Inhaled Oxygen Concentration - - Weight 86.2 kg (190 lb) 10/19/2021 12:33 PM REFERRAL MANAGER Height 188 cm (6' 2) 10/19/2021 12:33 PM REFERRAL MANAGER Body Mass Index 24.39 10/19/2021 12:33 PM REFERRAL MANAGER Plan of Treatment Health Maintenance Due Date Last Done Comments HIV Screening 2000 Hepatitis C Screening ages 1 8 to 79 once 2000 MMR VACCINES (1 of 1 - Stand gio series) 2001 YEARLY WELLNESS EXAM 2003 DTaP/Tdap/Td Vaccines (1 - Tdap) 2007 DEPRESSION SCREENING 2012 Varicella Vaccine (1 of 2 - 13+ 2-dose series) 2013 HPV VACCINES (1 - Male 3-dos e series) 2015 ADULT TETANUS 2019 HEPATITIS B VACCINES (1 of 3 - 19+ 3-dose series) 2019 Influenza Vaccine 06/26/2025 COVID-19 Immunization (1 - 2 024-25 season) 2025 Zoster Vaccine (Recombinant Vaccine) (1 of 2) 2050 HEPATITIS A VACCINES Aged Out No long er eligible based on patient's age to complete this topic HIB VACCINES Aged Out No longer eligi ble based on patient's age to complete this topic IPV VACCINES Aged Out No longer eligi ble based on patient's age to complete this topic MENINGOCOCCAL VACCINE Aged Out No michelle nicole eligible based on patient's age to complete this topic Meningococcal B Vaccine Aged Out No l onger eligible based on patient's age to complete this topic Pneumococcal Vaccine: Peds t o 50 & At-Risk Patients Aged Out No longer eligible b ased on patient's age to complete this topic ROTAVIRUS VACCINES Aged Out No longer eligible based on patient's age to complete this topic Insurance ANTHEM/BCBS ANTHEM/BCBS Advance Directives * Full Code (Latest Code Status on File) Date Activated Date Inactivated Comments 10/19/2021 4:21 PM 10/20/2021 1:45 PM
--- OUTSIDE RECORDS SUMMARY | 2025-10-20 10:35 | XMS_ITS | Clinical Summary ---
Author Organization [facility] Address [address] [place] [address] Care Team Providers Care Guitar Player Name Role Phone Rob Burt MD Primary Care Provider [phone] Allergies Active Allergy Reactions Criticality Noted Date Comments Promethazine Unknown 12/15/2011 Promethazine Hcl Other (See comments) Low 8 Medications naproxen (NAPROSYN,ALEVE) 220 mg tablet Take by mouth 2 (two) times a day with meals. Active multivitamin,tx- minerals (VITAMINS AND MINERALS) tablet Take 1 tablet by mouth. Active omeprazole (PriLOSEC) 40 mg capsule 08/19/2018 Active rizatriptan (MAXALT) 10 mg tabletIndication s:Migraine Take 10 mg by mouth. 12/11/2017 Active AFLURIA QUAD [id number], PF, 60 mcg/0.5 mL syringe 08/26/2018 Active topiramate (TOPAMAX) 50 mg tablet Take 50 mg by mouth 2 times daily Active escitalopram (LEXAPRO) 10 mg tablet 02/28/2019 Active traMADol (ULTRAM) 50 mg tablet Take 50 mg by mouth every 6 (six) hours Active Active Problems Problem Noted Date Diagnosed Date CMC (carpometacarpal joint) dislocation, right, initial encounter 03/18/2019 Overview (03/18/2019): Added automatically from request for surgery Migraine with aura and witho ut status migrainosus, not intractable 08/16/2017 Surgical History Surgery Date Site/Laterality Comments WRIST GANGLION EXCISION Left Medical History Medical History Date Comments Migraines Family History Medical History Relation Name Comments Migraines Mother Relation Name Status Comments Mother Social History Tobacco Use Types Packs/Day Years Used Date Smoking Tobacco: Never Smokeless Tobacco: Never Alcohol Use Standard Drinks/Week Comments No 0 (1 standard drink = 0.6 oz pur e alcohol) Sex and Gender Information Value Date Recorded Sex Assigned at Not on file Legal 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 Gender Identity Male 03/20/2019 7:13 AM CDT Sexual Orientation Not on file Last Filed Vital Signs Vital Sign Reading Time Taken Comments Blood Pressure 135/92 03/19/2019 1:20 PM CDT Pulse 64 03/19/2019 1:25 PM CDT Temperature 36.7 C (98.1 F) 03/19/2019 1:25 PM CDT Respiratory Rate 13 03/19/2019 1:25 PM CDT Oxygen Saturation 97% 03/19/2019 1:25 PM CDT Inhaled Oxygen Concentration - - Weight 70.3 kg (155 lb) 04/29/2019 10:13 AM CDT Height 185.4 cm (6' 1) 04/29/2019 10:13 AM CDT Body Mass Index 20.45 04/29/2019 10:13 AM CDT Plan of Treatment Not on file Medical Devices Implanted Type Area Review Manager Device Identifier Shelf Expiration Date Model / Serial / Lot Lifenet [id number] Vivigen Allograft Graft 1 Cc Bone Cortical Cancellous; Deminerali - [id number] - [id number] Implanted:Qty: 1 on 03/19/2019 by Isreal Madrid MD at [facility] Right: Hand Lifenet 09/12/2019- / [id number] / Synthes 200.811 1.5mm 3mm 11mm Self Tap Cruciform Low Profile Head Cortex Screw - [id number] Implanted:Qty: 1 on 03/19/2019 by Isreal Madrid MD at [facility] Right: Hand Synthes I 200.811 / / Synthes 200.820 1.5mm 3mm 20mm Self Tap Cruciform Low Profile Head Cortex Screw - [id number] Implanted:Qty: 1 on 03/19/2019 by Isreal Madrid MD at [facility] Right: Hand Synthes I 200.820 / / Synthes 246.031 Pro-Andrey 29x3.8x.8mm 6 Hole Low Profile Precontour Cut To Length - [id number] Implanted:Qty: 1 on 03/19/2019 by Isreal Madrid MD at [facility] Right: Hand Synthes I 246.031 / / Synthes 200.816 1.5mm 3mm 16mm Self Tap Cruciform Low Profile Head Cortex Screw - [id number] Implanted:Qty: 1 on 03/19/2019 by Isreal Madrid MD at [facility] Right: Hand Synthes I 200.816 / / Explanted Type Area Review Manager Device Identifier Shelf Expiration Date Model / Serial / Lot Synthes 200.810 1.5mm 3mm 10mm Self Tap Cruciform Low Profile Head Cortex Screw - [id number] Implanted:Qty: 1 Explanted:Qty: 1 on 03/19/2019 at [facility] Right: Hand Synthes I 200.810 / / Synthes 200.814 1.5mm 3mm 14mm Self Tap Cruciform Low Profile Head Cortex Screw - [id number] Implanted:Qty: 1 Explanted:Qty: 1 on 03/19/2019 at [facility] Right: Hand Synthes I 200.814 / / Insurance [facility] ACCESS CHOICE YouTube PA YouTube PA YouTube PA Care Teams Guitar Player Relationship Specialty Start Date End Date Rob Burt MD [address] [address] PCP - General Family Medicine 08/24/18
--- OUTSIDE RECORDS SUMMARY | 2025-10-20 10:35 | XMS_ITS | Clinical Summary ---
Author Organization [facility] Address [address] [place] [address] Care Team Providers Care Auto Emissions Technician Name Role Phone Rob Burt MD Primary Care Provider [phone] Morro Fink MD Unavailable Unavailable Sven Rodarte MD Unavailable [phone] [facility],non-owned Affiliates and Associated Physician Practices is amultiple site organization consisting of ambulatory clinics and hospital sitesin [place], [place], [place] and [place]. This disclosure is being madepursuant to the Care Everywhere program and may not contain all information available regarding this patient. Last updated 18.[facility] Allergies Active Allergy Reactions Criticality Noted Date Comments Promethazine 12/15/2011 Medications * Be aware that medications may not be up to date on this document. Alwaysverify current medications with the patient. fluticasone propionate (FLONASE) 50 MCG/ACT nasal spray [place] 1 [place] into each nostril 2 times daily. Active azelastine (ASTELIN) 137 MCG/SPRAY nasal spray [place] 1 [place] into each nostril 2 times daily. Active SUMAtriptan (IMITREX) 25 MG tablet Take 1 Tab by mouth once as needed for Migraine for up to 1 dose. 30 Tab 1 4 Active COD LIVER OIL PO Act laurie naproxen sodium (ALEVE) 220 MG tabletIndication s:Migraine with aura and without status migrainosus, not intractable Take 2 Tabs by mouth 2 times daily as needed for Pain 45 Tab 6 Active multivitamin daily (THERAGRAN) tablet Take 1 tablet by mouth daily with food Active rizatriptan (MAXALT) 10 MG tabletIndication s:Migraine with aura and without status migrainosus, not intractable Take 1 tablet by mouth daily as needed - may repeat one time for Migraine N 8 tablet 5 8 Active topiramate (TOPAMAX) 25 MG tabletIndication s:Migraine with aura and without status migrainosus, not intractable Take 2 tablets by mouth 2 times daily . 120 tablet 11 8 Active topiramate (TOPAMAX) 25 MG tablet Take 2 tablets by mouth 2 times daily Must schedule an appointment with neurology or PCP for further refills. [phone]. 120 tablet 1 9 Active Active Problems Problem Noted Date Diagnosed Date Migraine with aura and witho ut status migrainosus, not intractable Social History Tobacco Use Types Packs/Day Years Used Date Smoking Tobacco: Never Smokeless Tobacco: Never Alcohol Use Standard Drinks/Week Comments Not Asked 0 (1 standard drink = 0.6 oz pur e alcohol) Sex and Gender Information Value Date Recorded Sex Assigned at Not on file Legal Sex Male 5:40 AM GRANTS OFFICER Gender Identity Not on file Sexual Orientation Not on file Last Filed Vital Signs Vital Sign Reading Time Taken Comments Blood Pressure 106/64 12/11/2017 3:12 PM GRANTS OFFICER Pulse - - Temperature - - Respiratory Rate - - Oxygen Saturation - - Inhaled Oxygen Concentration - - Weight 69.2 kg (152 lb 8.9 oz) 12/11/2017 3:12 P M GRANTS OFFICER Height 182 cm (5' 11.65) 12/11/2017 3:12 PM GRANTS OFFICER Body Mass Index 20.89 12/11/2017 3:12 PM GRANTS OFFICER Plan of Treatment Health Maintenance Due Date Last Done Comments HIV SCREENING 2015 HPV VACCINE (1 - Male 3-dose series) 2015 HEPATITIS C SCREENING 08/29/2018 DTAP/TDAP/TD VACCINES (1 - Tdap) 2019 HEPATITIS B VACCINE (1 of 3 - 19+ 3-dose series) 2019 DEPRESSION SCREENING 11/26/2024 COVID-19 VACCINE ( - 2024-2 6 season) 2025 INFLUENZA VACCINE (#1) 2025 ZOSTER VACCINE (1 of 2) 2050 HIB VACCINE Aged Out No longer eligi ble based on patient's age to complete this topic MENINGOCOCCAL (Group B) VACC INE SHARED DECISION-MAKING Aged Out No longer eligibl e based on patient's age to complete this topic MENINGOCOCCAL GROUPS A/C/Y/W VACCINE Aged Out No longer eligible b ased on patient's age to complete this topic PNEUMOCOCCAL VACCINE Aged Out No long er eligible based on patient's age to complete this topic Insurance ANTHEM ANTHEM Care Teams Auto Emissions Technician Relationship Specialty Start Date End Date Rob Burt MD [address] [place] [id number] PCP - General 03/03/10 Morro Fink MD [address] [place] [address] Neurologist Pediatric Neurology 07/07/13 Sven Rodarte MD [address] [place] [address] Neurologist Neurology 07/07/13
--- OUTSIDE RECORDS SUMMARY | 2025-10-20 10:36 | XMS_ITS | Clinical Summary ---
Author Organization [facility] Address [address] [place]: [place] [address] Care Team Providers Care Third Helper Name Role Phone Unavailable Primary Care Provider Unavailabl e Medications rizatriptan (MAXALT) 10 mg Tablet TAKE 1 TABLET BY MOUTH AT ONSET OF HEADACHE. IF NO RELIEF AFTER 2 HOURS, MAY REPEAT DOSE. MAX DOSE 3 TABLETS PER 24 HOURS. 10 Tablet 04/04/2024 4:42 PM CDT 4 Active escitalopram oxalate (LEXAPRO) 20 mg tablet Take 1 tablet by mouth daily 90 Tablet 01/23/2025 4:42 PM FRENCH TUTOR 4 Active naltrexone (DEPADE) 50 mg tablet Take 1 Tablet (50 mg) by mouth daily. 90 Tablet 12/24/2024 5:09 PM FRENCH TUTOR 5 Active ergocalciferol (VITAMIN D2) 50,000 unit capsule Take 1 Capsule (50,000 Units) by mouth every 7 days. 4 Capsule 1 12/31/2024 4:21 PM FRENCH TUTOR 5 Active naltrexone (DEPADE) 50 mg tablet Take 1 Tablet (50 mg) by mouth daily. 90 Tablet 01/21/2025 5:15 PM FRENCH TUTOR 5 Active folic acid (FOLVITE) 1 mg tablet Take 1 Tablet (1 mg) by mouth daily. 90 Tablet 03/16/2025 4:28 PM CDT 5 Active escitalopram oxalate (LEXAPRO) 20 mg tablet Take 1 Tablet (20 mg) by mouth daily. 90 Tablet 5 Active atomoxetine (STRATTERA) 80 mg capsule Take 1 Capsule (80 mg) by mouth daily. 90 Capsule 05/01/2025 5:04 PM CDT 5 Active atomoxetine (STRATTERA) 100 mg Capsule Take 1 Capsule (100 mg) by mouth daily in the morning. 90 Capsule 02/26/2025 5:00 PM CDT Active escitalopram oxalate (LEXAPRO) 20 mg tablet Take 1 Tablet (20 mg) by mouth daily. 90 Tablet 02/26/2025 5:00 PM CDT 5 Active folic acid (FOLVITE) 1 mg tablet Take 1 Tablet (1 mg) by mouth daily. 90 Tablet Active naltrexone (DEPADE) 50 mg tablet Take 1 Tablet (50 mg) by mouth daily. 90 Tablet 02/26/2025 5:00 PM CDT Active ergocalciferol (VITAMIN D2) 50,000 unit capsule Take 1 capsule by mouth weekly 12 Capsule 03/23/2025 5:07 PM CDT Active folic acid (FOLVITE) 1 mg tablet Take 1 Tablet (1 mg) by mouth daily. 90 Tablet 05/07/2025 10:49 AM CDT 5 Active naltrexone (DEPADE) 50 mg tablet Take 1 Tablet (50 mg) by mouth daily. 90 Tablet 5 Active ergocalciferol (VITAMIN D2) 50,000 unit capsule Take 1 capsule by mouth once weekly 12 Capsule 05/07/2025 10:49 AM CDT Active viloxazine (Qelbree) 200 mg Capsule, Sust. Release 24HR Take 1 Capsule (200 mg) by mouth daily. 30 Capsule 1 05/09/2025 10:11 AM CDT 5 Active viloxazine (Qelbree) 200 mg Capsule, Sust. Release 24HR Take 1 Capsule (200 mg) by mouth daily. 30 Capsule 1 06/04/2025 4:51 PM CDT Active escitalopram oxalate (LEXAPRO) 20 mg tablet Take 1 Tablet (20 mg) by mouth daily. 90 Tablet 3 5 Active viloxazine (Qelbree) 200 mg Capsule, Sust. Release 24HR Take 1 Capsule (200 mg) by mouth daily. 90 Capsule 3 Active rizatriptan (MAXALT) 10 mg Tablet Take 1 tablet by mouth at onset of headache; if no relief may repeat 1 tablet after at least 2 hrs; max = 3 tabs/24 hours 10 Tablet 2 5 Active rizatriptan (MAXALT) 10 mg Tablet Take 1 tablet by mouth at onset of headache; if no relief may repeat 1 tablet after at least 2 hours. Max 3 tabs in 24 hours. 10 Tablet 2 09/08/2025 4:47 PM CDT 5 10/20/20 Discontinued Immunizations Immunization Administration Dates Next Due INFLUENZA VACCINE TRIVALENT SPLIT VIRUS, (6 MOS UP), 0.5ML (PF), IM 09/04/2025 Social History Tobacco Use Types Packs/Day Years Used Date Smoking Tobacco: Never Assessed Sex and Gender Information Value Date Recorded Sex Assigned at Not on file Legal Sex Male 7:49 AM CDT Gender Identity Not on file Sexual Orientation Not on file Plan of Treatment Health Maintenance Due Date Last Done Comments HPV VACCINES (1 - Male 3-dose series) 2015 DTAP/TDAP/TD VACCINES (1 - Tdap) 2019 HEPATITIS B VACCINES (1 of 3 - 19+ 3-dose series) 06/2019 INFLUENZA VACCINE Completed 09/04/2025 Insurance [employer] (INTER[employer]) [facility] [employer] [facility]
[2025-10-20 20:03] LABS: Alanine Aminotransferase 67 U/L (6-50); Albumin Level 4.9 g/dL (3.5-5.1); Alkaline Phosphatase 94 U/L (38-126); Anion Gap 11 mmol/L (4-12); Aspartate Amino Transferase 145 U/L (17-59); Bilirubin,Total 0.4 mg/dL (0.2-1.3); Blood Urea Nitrogen 12 mg/dL (9-20); Calcium 10.1 mg/dL (8.4-10.2); Carbon Dioxide 26 mmol/L (22-30); Chloride 100 mmol/L (98-107); Cholesterol 224 mg/dL (0-200); Estimated Glomerular Filt Rate > 60; Glucose 82 mg/dL (65-110); HDL Direct 89 mg/dL; Potassium 3.9 mmol/L (3.4-5.0); Sodium 137 mmol/L (137-145); Total Protein 8.4 g/dL (6.3-8.2); Triglycerides 397 mg/dL (<150)
[2025-10-20 20:35] LABS: Hematocrit 48.1 % (42.0-52.0); Hemoglobin 16.4 g/dL (14.0-18.0); Immature Granulocyte Percent A 1.6 % (0-0.5); Lymphocytes Absolute Auto 1.10 K/mm3 (0.9-3.2); Mean Corpuscular HGB Conc 34.1 g/dl (32-36); Mean Corpuscular Hemoglobin 33.5 pg (26-34); Mean Corpuscular Volume 98.4 fl (80-100); Nucleated Red Blood Cells Absolute Auto 0.000 K/mm3 (0.0-0.012); Nucleated Red Blood Cells Perc 0.0 % (0.0-0.2); Platelet Count Result 232 k/mm3 (150-375); Red Blood Count 4.89 M/mm3 (4.6-6.20); White Blood Count 4.9 K/mm3 (4.5-10.0)
[2025-10-20 20:39] LABS: Thyroid Stimulating Hormone 1.590 uIU/mL (0.465-4.680)
== END 2025-10-20 09:42 | disposition home or self-care (01) ==
LOC: ANHGOSHLAB 09:42
PROVIDERS: PCP Internal Medicine; Visit Provider Internal Medicine
DX: F41.9 Anxiety disorder, unspecified (principal); F33.41 Major depressive disorder, recurrent, in partial remission; F90.2 Attention-deficit hyperactivity disorder, combined type; R00.1 Bradycardia, unspecified; G43.009 Migraine without aura, not intractable, without status migrainosus; Z13.220 Encounter for screening for lipoid disorders
CPT/HCPCS: 36415; 80053; 80061; 82172; 84443; 85025

== ENCOUNTER 2025-11-16 08:20 | Outpatient (CLI) | payer OTHER, SELFPAY ==
--- NOTE | ~2025-11-16 | US_ITS ---
US abdomen limited INDICATION: Alcohol abuse PROCEDURE: Realtime right upper abdominal ultrasound. COMPARISON: No prior studies for comparison. FINDINGS: The pancreas is normal without focal mass or pancreatic ductal dilation. There is a focal hyperechoic mass adjacent to the portal vein measuring 2.9 x 2.7 x 2.1 cm. There is normal directional flow in the portal vein. The gallbladder is normal without stones, gallbladder wall thickening or pericholecystic fluid. Common bile duct measures 5 mm. No sonographic Epstein's sign. 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 In the absence of known malignancy differential diagnosis includes hemangioma and focal fatty infiltration. Consider follow-up ultrasound in 6-12 months. Reviewed, dictated and finalized at location [facility]. 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 In the absence of known malignancy differential diagnosis includes hemangioma and focal fatty inf iltration. Consider follow-up ultrasound in 6-12 months.
== END 2025-11-16 08:21 | disposition home or self-care (01) ==
LOC: GOSHIMG 08:20
PROVIDERS: PCP Internal Medicine; Visit Provider Internal Medicine
DX: R10.11 Right upper quadrant pain (principal); R74.01 Elevation of levels of liver transaminase levels
CPT/HCPCS: 76705